=== PATIENT | female | born 1985 | race Caucasian/White ===

== ENCOUNTER → 2022-01-06 00:24 | Outpatient (CLI) | payer BC, SELFPAY ==
[2022-01-06 11:25] LABS: SARS-CoV-2 RNA PCR Negative
== END ==
PROVIDERS: Visit Provider Student in an Organized Health Care Education/Training Program
DX: Z01.812 Encounter for preprocedural laboratory examination (principal); Z20.822 Contact with and (suspected) exposure to COVID-19
CPT/HCPCS: C9803; U0003; U0005

== ENCOUNTER 2022-01-06 09:57 | Outpatient (CLI) | payer BC, SELFPAY ==
[2022-01-06 10:17] LABS: Hematocrit 42.5 % (37.0-47.0); Hemoglobin 13.9 g/dL (12.0-15.0); Mean Corpuscular HGB Conc 32.7 g/dl (32-36); Mean Corpuscular Hemoglobin 29.1 pg (26-34); Mean Corpuscular Volume 89.1 fl (80-100); Mean Platelet Volume 10.5 fl (7.4-10.4); Platelet Count Result 232 k/mm3 (150-375); Red Blood Count 4.77 M/mm3 (4.2-5.4); Red Cell Distribution Width 12.8 % (11.5-14.5); White Blood Count 9.4 K/mm3 (4.5-10.0)
== END 2022-01-06 09:58 | disposition home or self-care (01) ==
LOC: ANHSURGERY 10:01
PROVIDERS: Visit Provider Student in an Organized Health Care Education/Training Program
DX: N83.209 Unspecified ovarian cyst, unspecified side (principal); Z01.818 Encounter for other preprocedural examination
CPT/HCPCS: 36415; 85027; 86850; 86900; 86901

== ENCOUNTER 2022-01-09 00:32 | Day surgery (SDC) | payer BC, SELFPAY ==
[2022-01-03 15:50] VITALS: BMI 26.5
--- NOTE | 2022-01-03 15:51 | SUR.PREOP ---
Addendum entered by So Adams RN 01/06/22 09:21: DISCONTINUE MULTIVITAMINS AND PROBIOTIC 3 DAYS PRIOR TO SURGERY, HOLD UNTIL AFTER SURGERY. Original Note: Report to the Outpatient Waiting Room, entrance under the [facility] located off [facility], at time 12:00 on date 01/09/2022. OR Time. 2:00 PM - You and your visitor will be asked a series of questions to screen for COVID 19 for your protection. - A mask is required within the hospital. Preoperative COVID Testing Requirements:COVID TEST 01/06/22 @ 0945 No COVID Test needed if: (proof is required; if not received patient will have Rapid Test prior to entry) - Patient has received COVID Vaccine at least 14 days prior to procedure date or - Patient has positive COVID test result within last 90 days of surgery date. COVID Test needed if above criteria is not met If not COVID vaccinated a COVID test must be conducted within 72 hours of surgery and patient is asked to isolate self from time of testing until procedure. You will go to the [facility] Testing Site for your COVID testing. The [employer] [facility] Testing site is located at the corner of [address] [facility]. You will only be called if COVID results are positive and your surgeon may reschedule your elective surgery date. Patients may have clear liquids (water, carbonated beverages, clear teas, apple juice) until 3 hours prior to surgery with a maximum of 20 ounces. - No food from midnight until time of surgery - Infants may have breast milk until 4 hours before surgery, formula 6 hours prior to surgery. - Children will be allowed to drink immediately following surgery. If applicable, please bring a bottle or sippy cup to assist with drinking. Juice, water, soda, and popsicles are readily available. For infants on formula, please bring formula the day of surgery. Pacifiers are allowed. Take the following medications with a SIP of water the morning of surgery: N/A Medications to discontinue per physician N/A Date to take last dose N/A Please no make-up, nail serbian, hairspray, perfume, deodorant, or body powder the day of surgery. No jewelry (including any body piercings) or valuables the day of surgery, leave them at home. Please take a shower or bath the night before, or the morning of, surgery with an antibacterial soap. Wear comfortable, loose fitting clothing. Children are encouraged to wear pajamas. - Jewelry must be removed prior to entering the operating room. Rings and piercings that are not removed may be cut off. - The hospital will not accept responsibility for valuables. - Please leave all valuables, including medications, at home the day of surgery. If you are going home after surgery, a licensed passenger coach driver must drive you home. - NO public transportation without another adult. - We recommend that an adult stay with you for 24 hours following discharge. - We also recommend that you do not drive, make important decision, drink alcoholic beverages, or take any drugs that were not prescribed by your health care provider for at least 24 hours after your discharge time. For Pediatric surgeries, we recommend two adults accompany the child home (only one inside the building at this time). One visitor will be allowed to accompany the patient into the hospital. Patients visitor will be instructed to remain with patient at all times or leave the building. We will allow the visitor to come back to the postoperative area when patient is ready. Follow any additional instructions given to you from your surgeon. Telephone instructions given to ZOE PINEDA and asked if any additional questions and then verbalized understanding. Patient advised to call surgeon office or pre surgery nurse liaison [phone] if any additional questions.
[2022-01-09] VITALS (9 sets, daily range): BP systolic 112–154; BP diastolic 75–98; PULSE 67–85; RESP 12–18; TEMP 36.3–36.6; O2SAT 94–100
--- NOTE | 2022-01-09 10:17 | PM.IMHP ---
H&P: HPI History of Present Illness Date/Time: 01/09/22 10:17 Chief Complaint: pelvic pain infertility abnormal uterine bleeding right ovarian cyst Narrative: 36 yo who presents for diagnostic laparoscopy and right ovarian cystectomy. Pt initially presented with infertility and pelvic pain. Pelvic US showed a complex right ovarian cyst. Pt has been trying to conceive for some time without success. She has a history of endometriosis diagnosed in 2018 by laparoscopy. discussed endometriosis and that the cyst may be an endometria. Pt elects for surgical evaluation and management of cyst. Review of Systems Cardiovascular: Cardiovascular: Denies chest pain, Denies leg edema, Denies palpitations, Denies dyspnea and Denies dyspnea on exertion Respiratory: Respiratory: Denies cough, Denies dyspnea and Denies dyspnea on exertion Gastrointestinal: Gastrointestinal: Denies abdominal pain, Denies constipation, Denies diarrhea, Denies nausea and Denies vomiting Genitourinary: Genitourinary: Denies hematuria, Denies urinary frequency, Denies dysuria, Denies pelvic pain, Denies urinary incontinence and Denies vaginal discharge Neurologic: Reports system reviewed and no additional complaints, except as documented Psychiatric: Psychiatric: Reports no additional psychiatric complaints Endocrine: Endocrine: Denies palpitations PMFSH Social History Social History Smoking status: Never smoker Living arrangements: with family Spiritual care concerns: No Meds Home Medications and Allergies Home Medications Medication Instructions Recorded Confirmed Type Adults Multivitamin 1 cap PO DAILY 01/03/22 01/03/22 History Probiotic 1 cap PO DAILY 01/03/22 01/03/22 History Zyrtec 1 cap PO DAILY 01/03/22 01/03/22 History Allergies Allergy/AdvReac Type Severity Reaction Status Date / Time No Known Allergies Allergy Verified 01/03/22 15:54 Exam Const: General: no acute distress Eyes: EOM: EOMs intact bilaterally Neck: Neck: supple Thyroid: thyroid normal Chest: Breast/axilla inspection: normal inspection of the breasts Breast/axilla palpation: normal palpation of the breasts, normal palpation of the axillae and no axillary lymphadenopathy Resp: Effort & Inspection: normal respiratory effort Auscultation: clear to auscultation bilaterally Cardio: Rate: regular rate Rhythm: regular rhythm GI: Inspection: non-distended GI Palp: Yes Soft to palpation, No Tenderness to palpation present (GI) and No Guarding due to palpation present (GI) Auscultation: normal bowel sounds : General: No bladder normal to palpation External Female Exam: normal external appearance Speculum Exam - Vagina: normal vaginal discharge and No vaginal bleeding Speculum Exam - Cervix: nontender Bimanual exam- vagina & uterus: No bladder normal to palpation and No Cervical tenderness present OB/external & speculum: No vaginal bleeding Skin: General skin exam: normal color and no rashes or lesions noted Neuro: Cognition (Neuro): normal cognition Speech: normal speech Extrem: General: normal to inspection and no edema Psych: Mental Status: mental status grossly normal Affect: normal affect Assessment and Plan Assessment and plan (1) Pelvic pain: Code(s): R10.2 - Pelvic and perineal pain Status: Acute Assessment and Plan: pt diagnosed with endometriosis in 2018 by laparoscopy pt still having pelvic pain (2) Ovarian cyst: Code(s): N83.209 - Unspecified ovarian cyst, unspecified side Status: Acute (3) Dysmenorrhea: Code(s): N94.6 - Dysmenorrhea, unspecified Status: Acute Assessment and Plan: complex right ovarian cyst (4) Endometriosis: Code(s): N80.9 - Endometriosis, unspecified Status: Acute Assessment and Plan: diagnosed with endometriosis in 2018 by laparoscopy pt has been struggling to conceive pt with heavy painful periods pt noted to have complex right ov
--- NOTE | 2022-01-09 10:23 | WPDHPUPDATE1 ---
History and Physical Update Update Date/Time: 01/09/22 10:23 History and Physical has been reviewed, including an updated exam of the patient. There are NO changes in the patient's condition. Risks, benefits, and alternatives have been discussed and questions answered. Patient agrees to proceed with procedure.
[2022-01-09] MEDS: ACETAMINOPHEN 500 MG TABLET 1000 MG PO (12:17)
[2022-01-09] MEDS: LACTATED RINGERS 1,000 ML 30 ML IV CONT ×2 (12:30→15:45)
[2022-01-09] MEDS: KETOROLAC 15 MG/ML VIAL (*BKC) IV PUSH (12:44)
--- NOTE | 2022-01-09 12:55 | P.PNAN_ITS ---
Anes - Initial Pre Proc Eval Procedure: Operation Date: 01/09/22 14:00 Proposed Procedures p Laparoscopic Right Ovarian Cystectomy - Bobby Velazco MD Date/Time: 01/09/22 12:55 Surgeon: Bobby Velazco MD Pre Op Diagnosis: pain right ovarian cyst Patient Data Age: 36 Gender: F Height: 1.57 m Weight: 68.3 kg Allergies Allergy/AdvReac Type Severity Reaction Status Date / Time No Known Allergies Allergy Verified 01/09/22 12:08 Home Medications Medication Instructions Recorded Confirmed Type Adults Multivitamin 1 cap PO DAILY 01/03/22 01/09/22 History Probiotic 1 cap PO DAILY 01/03/22 01/09/22 History Zyrtec 1 cap PO DAILY 01/03/22 01/09/22 History Patient hx anesthesia problems: none Family hx anesthesia problems: none Results Review: All pre-operative results and documents have been reviewed as part of the pre-operative evaluation. [facility] Past Medical History Medical History (Updated 01/09/22 @ 12:59 by John Goncalves DO) Endometriosis Social History Social History Smoking status: Never smoker Living arrangements: with family Spiritual care concerns: No Anes - Eval Final PreProcedure Day of Procedure 01/09/22 12:55 Patient weight: overweight Heart: regular rate and rhythm Lungs: clear to auscultation and normal air movement Airway: Mallampati scale class II Neurological: alert and oriented Last oral intake: >/= 8 hours ASA classification: II Emergent: no Anesthetic plan: proceed Anesthesia type and monitoring: general ETT and standard monitoring Results Review: All pre-operative results and documents have been reviewed as part of the pre-operative evaluation. Informed Consent: The patient's anesthetic plan and its attendant risks and benefits were discussed with the patient/family/POA. Questions were solicited and answers provided to the satisfaction of the patient/family/POA.
--- NOTE | 2022-01-09 14:09 | SUR.PREOP ---
Resting with no needs or complaints. Discussed delay with patient and . Voices understanding.
[2022-01-09] MEDS: LIDO 1%/EPINEPHRINE 1:100,000 50 ML VIAL 20 ML INFILTRATE (14:49)
--- NOTE | 2022-01-09 15:38 | P.OP_ITS ---
Procedure Note - Detailed Date of Procedure 01/09/22 Pre-op Diagnosis pelvic pain dysmenorrhea endometriosis right ovarian cyst Post-op Diagnosis Same Procedure Performed exploratory laparoscopy fulguration of endometriosis Surgeon Bobby Velazco MD Anesthesia General Indications pelvic pain Findings severe stage 4 endometriosis. Endometrial implants noted throughout the pelvis. Focal areas of lesions on the left uterosacral ligament along the course of the ovarian artery. Peritoneal implants in the posterior cul de sac, filmy adhesions between the bowel and posterior uterine serosa, decidual reaction all over the uterine serosa. Right ovary with no obvious cyst. The ovarian capsule was puncutred during manipulation and dark chocolate like blood was expressed. Description of Procedure The patient was taken to the operating room where general endotracheal anesthesia was undertaken and found to be adequate. She was then prepped and draped in the dorsal lithotomy position and placed in adjustable stirrups. A pre-operative team brief and a time out were completed. A catheter was placed to drain the bladder. Retractors were placed placed in the vagina and the cervix was identified. An acorn uterine manipulator was placed. Attention was then turned to the abdomen which was anesthetized umbilically with injected anesthestic. A 5 mm skin incision was made in the umbilicus. A 5 mm optical trocar was then placed with direct camera visualization of the abdominal layers during placement. The trocar stylet was removed and the camera was used to verify intra-abdominal placement. CO2 insufflation was then connected and resumed. The pelvis was inspected. A left lower quadrant 5 mm port was placed, in addition to a right lower quadrant 5 port in the standard fashion after using local anesthetic. The pelvis was inspected. severe stage 4 endometriosis was noted throughout the pelvis. There were dense collections of gun powder lesions along the left uterosacral ligament, the anterior pelvic wall, Right ovarian fossa, and posterior cul de sac. Multiple peritoneal biopsies were taken. Visible areas of gun powder lesions were fulgurated with monopolar energy. During manipulation of the right ovary, the ovarian capsule was puncutured. Dark chocolate like blood was expressed. This are was attempted to be opened further to remove the cyst wall. Cyst wall was unable to be identified due to bleeding. After further manipulation, brisk bleeding was noted from the Right ovarian capsule. Monopolar energy was used for cautery. After bleeding was controlled, the pelvis was copiously irrigated. Hemaderm was placed overy the ovarian incision. The pelvis was again inspected and there was no pooling of blood or further bleeding noted At this time it was felt that no further lesions could be removed safely without risk of bleeding given proximity to significant vessels and structures. The surgical field was thoroughly irrigated using normal saline. All surgical beds were noted to be hemostatic. Sponge, lap and needle counts were correct. All skin incisions were closed with 4-0 Vicryl suture subcuticularly. The uterine manipulator was removed from the uterus. Hemostasis of the cervix wa s noted. The urinary catheter was removed. The patient was taken out of dorsal lithotomy position. Anesthesia was reversed. The patient was taken to the PACU. Estimated Blood Loss 200 Urine Output 100 Drains No Packing No Pathology Yes (peritoneal biopsies) Complications No immediate complications Condition Stable Disposition PACU
[2022-01-09] MEDS: fentaNYL CITRATE INJ (*CRX) 100 MCG/2 ML VIAL 25 MCG IV PUSH ×4 (16:00→16:19)
[2022-01-09] MEDS: oxyCODONE HCL (*CRX) 5 MG TAB IR PO (17:07)
--- NOTE | 2022-01-09 17:29 | SUR.PHASEII ---
DR. KEYS AWARE OF ELEVATED BP'S; OKAY'D FOR PATIENT TO GO HOME.
== END 2022-01-09 17:43 | disposition home or self-care (01) ==
PROVIDERS: Visit Provider Student in an Organized Health Care Education/Training Program
PROC: (CPT 49320; principal; 2022-01-09 14:00)
DX: R10.2 Pelvic and perineal pain (principal); N94.6 Dysmenorrhea, unspecified; N80.3 Endometriosis of pelvic peritoneum; N73.6 Female pelvic peritoneal adhesions (postinfective); N83.201 Unspecified ovarian cyst, right side
CPT/HCPCS: 58662; 88305; A9270; J1100; J1885; J2250; J2405; J2704; J2710; J3010; J7030; J7120

== ENCOUNTER 2023-01-09 11:12 | Outpatient (RCR) | payer BC, SELFPAY ==
[2023-01-09 11:47] LABS: Basophils Absolute Auto 0.1 K/mm3 (0.0-0.1); Basophils Percent Auto 0.7 % (0.2-1.2); Eosinophils Absolute Auto 0.2 K/mm3 (0-0.3); Eosinophils Percent Auto 1.4 % (0-4.4); Hemoglobin 13.7 g/dL (12.0-15.0); Immature Granulocyte Absolute 0.04 K/mm3 (0.00-0.031); Immature Granulocyte Percent A 0.4 % (0-0.5); Lymphocytes Absolute Auto 2.18 K/mm3 (0.9-3.2); Lymphocytes Percent Auto 20.4 % (18.3-44.2); Mean Corpuscular HGB Conc 33.4 g/dl (32-36); Mean Corpuscular Hemoglobin 28.5 pg (26-34); Mean Corpuscular Volume 85.4 fl (80-100); Mean Platelet Volume 10.7 fl (7.4-10.4); Monocytes Absolute Auto 0.6 K/mm3 (0.1-0.6); Monocytes Percent Auto 5.8 % (2.6-8.5); Neutrophils Absolute Auto 7.6 K/mm3 (1.3-6.7); Neutrophils Percent Auto 71.3 % (45.5-73.1); Platelet Count Result 221 k/mm3 (150-375); Red Cell Distribution Width 12.7 % (11.5-14.5); White Blood Count 10.7 K/mm3 (4.5-10.0)
[2023-01-09 12:40] LABS: HIV 1/2 Ab P24 Ag Result Negative (Negative)
[2023-01-09 12:41] LABS: Hepatitis B Surface Antigen Negative (Negative); Rubella IgG Antibody 14.9 IU/ML
[2023-01-09 17:16] LABS: Rapid Plasma Reagin Non-Reactive (NonReactive)
== END 2023-04-09 23:59 | disposition home or self-care (01) ==
LOC: ANHLAB 11:12
PROVIDERS: PCP Family Medicine; Visit Provider Student in an Organized Health Care Education/Training Program
DX: Z11.4 Encounter for screening for human immunodeficiency virus [HIV] (principal); N94.89 Other specified conditions associated with female genital organs and menstrual cycle
CPT/HCPCS: 36415; 84702; 85025; 86592; 86644; 86703; 86747; 86762; 86787; 86850; 86900; 86901; 87086; 87340; G0432

== ENCOUNTER 2023-05-14 11:29 | Outpatient (CLI) | payer BC, SELFPAY ==
[2023-05-14 13:53] LABS: Basophils Absolute Auto 0.1 K/mm3 (0.0-0.1); Basophils Percent Auto 0.4 % (0.2-1.2); Eosinophils Absolute Auto 0.1 K/mm3 (0-0.3); Eosinophils Percent Auto 0.6 % (0-4.4); Hematocrit 37.6 % (37.0-47.0); Hemoglobin 12.3 g/dL (12.0-15.0); Immature Granulocyte Percent A 0.8 % (0-0.5); Lymphocytes Absolute Auto 1.82 K/mm3 (0.9-3.2); Lymphocytes Percent Auto 14.8 % (18.3-44.2); Mean Corpuscular HGB Conc 32.7 g/dl (32-36); Mean Corpuscular Hemoglobin 29.6 pg (26-34); Mean Corpuscular Volume 90.6 fl (80-100); Mean Platelet Volume 10.9 fl (7.4-10.4); Monocytes Absolute Auto 0.8 K/mm3 (0.1-0.6); Monocytes Percent Auto 6.7 % (2.6-8.5); Neutrophils Absolute Auto 9.4 K/mm3 (1.3-6.7); Neutrophils Percent Auto 76.7 % (45.5-73.1); Platelet Count Result 194 k/mm3 (150-375); Red Blood Count 4.15 M/mm3 (4.2-5.4); Red Cell Distribution Width 14.5 % (11.5-14.5); White Blood Count 12.3 K/mm3 (4.5-10.0)
[2023-05-14 14:02] LABS: Glucose 1 Hour PP 50gm Dose 110 mg/dL
[2023-05-14 14:48] LABS: HIV 1/2 Ab P24 Ag Result Negative (Negative)
== END 2023-05-14 11:30 | disposition home or self-care (01) ==
LOC: ANHLAB 11:32
PROVIDERS: PCP Family Medicine; Visit Provider Student in an Organized Health Care Education/Training Program
DX: Z34.90 Encounter for supervision of normal pregnancy, unspecified, unspecified trimester (principal); Z3A.00 Weeks of gestation of pregnancy not specified
CPT/HCPCS: 36415; 82947; 85025; 86703; G0432

== ENCOUNTER 2023-07-29 07:27 | Inpatient (IN) | payer BC, MEDICAID, SELFPAY ==
[2023-07-29] VITALS (95 sets, daily range): BP systolic 104–132; BP diastolic 68–94; PULSE 77–121; RESP 18; TEMP 36.1–37.2; O2SAT 95–100; BMI 36.3
--- NOTE | 2023-07-29 07:56 | P.HPUP_ITS ---
History and Physical Update Update Date/Time: 07/29/23 07:56 38-year-old who presents at 39 weeks 3 days for elective induction of labor. This is an IVF . Patient has been on low-dose aspirin throughout the . Patient has a history of stage IV endometriosis. Rem ainder of the has been uncomplicated. History and Physical has been reviewed, including an updated exam of the patient. There are NO changes in the patient's condition. Risks, benefits, and alternatives have been discussed and questions answered. Patient agrees to proceed with procedure. A/P: admit to L&D routine admission orders labs reviewed Rh+ GBS neg continuous EFM plan for misoprostol IOL
--- NOTE | 2023-07-29 08:03 | LDADM ---
This patient, Stephy Resendiz, was admitted to Labor/Delivery/Recovery 102 on 07/29/23 at 07:27. Plans for labor, pain management and were discussed with patient. Patient/family oriented to hospital policies and general routines including ID bracelet, bed and alarms, visiting hours, pain management, procedures, bathroom and other care routines, personal items, smoking policy, room service/diet and guest tray routines, infant security routines, and visiting hours. Patient/Family are encouraged to report perceived risks to care and to ask questions if they do not understand what they are told or what they should do. See [facility] for further documentation.
[2023-07-29 08:20] LABS: Basophils Percent Auto 0.3 % (0.2-1.2); Eosinophils Absolute Auto 0.1 K/mm3 (0-0.3); Eosinophils Percent Auto 0.9 % (0-4.4); Hematocrit 39.5 % (37.0-47.0); Hemoglobin 13.1 g/dL (12.0-15.0); Immature Granulocyte Absolute 0.06 K/mm3 (0.00-0.031); Immature Granulocyte Percent A 0.5 % (0-0.5); Lymphocytes Absolute Auto 2.49 K/mm3 (0.9-3.2); Lymphocytes Percent Auto 21.4 % (18.3-44.2); Mean Corpuscular HGB Conc 33.2 g/dl (32-36); Mean Corpuscular Hemoglobin 29.4 pg (26-34); Mean Corpuscular Volume 88.6 fl (80-100); Mean Platelet Volume 11.1 fl (7.4-10.4); Monocytes Absolute Auto 1.1 K/mm3 (0.1-0.6); Monocytes Percent Auto 9.4 % (2.6-8.5); Neutrophils Absolute Auto 7.8 K/mm3 (1.3-6.7); Neutrophils Percent Auto 67.5 % (45.5-73.1); Platelet Count Result 195 k/mm3 (150-375); Red Blood Count 4.46 M/mm3 (4.2-5.4); Red Cell Distribution Width 13.7 % (11.5-14.5); White Blood Count 11.6 K/mm3 (4.5-10.0)
[2023-07-29] MEDS: miSOPROStol 25 MCG TABLET PO ×2 (08:21→12:42)
[2023-07-29 11:03] LABS: Rapid Plasma Reagin Non-Reactive (NonReactive)
[2023-07-29] MEDS: ACETAMINOPHEN 500 MG TABLET 1000 MG PO (13:25)
[2023-07-29] MEDS: fentaNYL CITRATE INJ (*CRX) 100 MCG/2 ML VIAL 50 MCG IV PUSH ×3 (17:48→22:51)
[2023-07-29] MEDS: ONDANSETRON INJ 4 MG/2 ML VIAL IV PUSH (17:49)
[2023-07-29] MEDS: LACTATED RINGERS 1,000 ML 125 ML IV CONT (22:49)
[2023-07-29] MEDS: OXYTOCIN 30 UNITS/NS 500 ML 30 UNITS/500 ML BAG 6 UNITS IV CONT (22:50)
[2023-07-30] VITALS (253 sets, daily range): BP systolic 59–132; BP diastolic 28–101; PULSE 71–134; TEMP 36.2–37.3; O2SAT 94–100
[2023-07-30] MEDS: fentaNYL CITRATE INJ (*CRX) 100 MCG/2 ML VIAL 50 MCG IV PUSH (03:09)
[2023-07-30] MEDS: LACTATED RINGERS 500 ML 999 ML IV CONT (05:25)
--- NOTE | 2023-07-30 05:36 | WPDANESEPPF ---
Anes - Initial Pre Proc Eval Procedure: Labor epidural Date/Time: 07/30/23 05:36 Surgeon: Bobby Velazco MD Pre Op Diagnosis: Labor pain Pre Op Diagnosis: IOL Patient Data Age: 38 Gender: F Height: 1.57 m Weight: 90 kg Last Vital Signs Temp 36.2 C L 07/30/23 02:00 Pulse 90 07/30/23 05:00 Resp 18 07/29/23 20:39 BP 123/79 07/30/23 05:00 Pulse Ox 100 07/29/23 22:31 O2 Del Method Room Air 07/29/23 07:59 Allergies Allergy/AdvReac Type Severity Reaction Status Date / Time No Known Allergies Allergy Verified 07/27/23 14:10 Home Medications Medication Instructions Recorded Confirmed Type Zyrtec 1 cap PO BID 01/03/22 07/06/23 History aspirin 81 mg tablet,delayed 81 mg PO DAILY 02/04/23 07/06/23 History release famotidine 20 mg tablet (Pepcid) 20 mg PO DAILY 02/04/23 07/06/23 History ferrous sulfate 325 mg (65 mg 325 mg PO DAILY 07/06/23 07/06/23 History iron) tablet ondansetron HCl 4 mg tablet 4 mg PO Q6H PRN nausea and 07/20/23 07/29/23 Rx vomiting #30 tabs prenat.vits,sesar,wai-cdtj-lsjep 1 tablet PO DAILY 07/29/23 07/29/23 History Laboratory Tests 07/29/23 08:11 WBC 11.6 H K/mm3 (4.5-10.0) RBC 4.46 M/mm3 (4.2-5.4) Hgb 13.1 g/dL (12.0-15.0) Hct 39.5 % (37.0-47.0) MCV 88.6 fl (80-100) MCH 29.4 pg (26-34) MCHC 33.2 g/dl (32-36) RDW 13.7 % (11.5-14.5) Plt Count 195 k/mm3 (150-375) MPV 11.1 H fl (7.4-10.4) Immature Gran % (Auto) 0.5 % (0-0.5) Neut % (Auto) 67.5 % (45.5-73.1) Lymph % (Auto) 21.4 % (18.3-44.2) [place] % (Auto) 9.4 H % (2.6-8.5) Eos % (Auto) 0.9 % (0-4.4) Baso % (Auto) 0.3 % (0.2-1.2) Lymph # (Auto) 2.49 K/mm3 (0.9-3.2) [place] # (Auto) 1.1 H K/mm3 (0.1-0.6) Eos # (Auto) 0.1 K/mm3 (0-0.3) Baso # (Auto) 0.0 K/mm3 (0.0-0.1) Abs Immat Gran (auto) 0.06 H K/mm3 (0.00-0.031) Absolute Neuts (auto) 7.8 H K/mm3 (1.3-6.7) Absolute Nucleated RBC 0.0 K/mm3 (0.0-0.012) Nucleated RBC % 0.0 % (0.0-0.2) RPR Non-reactive (NonReactive) Blood Type A Positive Antibody Screen Negative Patient hx anesthesia problems: none Family hx anesthesia problems: none Results Review: All pre-operative results and documents have been reviewed as part of the pre-operative evaluation. [facility] Past Medical History Medical History Endometriosis Suppression of menses Surgical History Surgical History H/O laparoscopy Family History Family History Mother Diabetes mellitus Pancreatitis Hypertension Grandparent Breast cancer Grandparent Cirrhosis of liver Dementia Social History Social History Smoking status: Never smoker Alcohol intake: former Substance use: never Substance use type: does not use Lack of Transportation: No Lack of Food: Never True Current Housing: I Have Housing Concerned About Future Housing: No Difficulty Paying Gas/Electric Bills: No Difficulty Paying for Meds: No Currently Unemployed: No Education: High School Diploma/GED Difficulty w/ Childcare or Family Care: No Living arrangements: other Additional living arrangements comments: Occupation/Education: occupation 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
--- NOTE | 2023-07-30 06:00 | WPDANESEPN ---
Anes - Epidural Procedure Note Date/Time: 07/30/23 06:00 Consent: I have discussed with the patient/family/POA, the placement of an epidural catheter and the use of epidural narcotic/local anesthetic for labor analgesia and/or postoperative pain management, including associated potential risks, benefits, complications and side effects. I have discussed alternative methods of labor analgesia and/or postoperative pain management. The patient/family/POA, understand(s) and wish(es) to proceed with epidural narcotic/local anesthetic for labor analgesia and/or postoperative pain management. Time-Out: A pre-procedural Time-Out was completed immediately before starting the procedure and confirmed: Patient Identification, Site, Procedure, Patient Position and the Availability of Requisite Equipment. Clinical Indications: Labor pain Epidural Insertion Note Patient position: sitting Skin prep: chlorhexidine and sterile drape Needle: 18g Tuohy-Schliff Catheter: 20g Unstyleted Technique: Loss of resistance. Level of insertion: L3/4 Catheter skin nenita (cm): 9 Length in epidural space (cm): 4 Skin anesthesia: lidocaine 1% Test dose: 1.5% Lidocaine with 1:[id number] Epi, negative for subarachnoid Inj and negative for intravascular Inj Time of test dose: 05:50 Observations: tolerated well Complications: none
[2023-07-30] MEDS: PHENYLEPHRINE 1,000 MCG/10 ML SYRINGE 100 MCG IV PUSH ×2 (06:05→06:06)
[2023-07-30] MEDS: ONDANSETRON INJ 4 MG/2 ML VIAL IV PUSH (06:38)
[2023-07-30] MEDS: LACTATED RINGERS 1,000 ML 125 ML IV CONT ×4 (07:35→23:53)
[2023-07-30] MEDS: CALCIUM CARBONATE (TUMS) 500 MG (200 MG ELEMENTAL) PO ×2 (08:52→21:37)
[2023-07-30] MEDS: OXYTOCIN 30 UNITS/NS 500 ML 30 UNITS/500 ML BAG 20 UNITS IV CONT (20:24)
[2023-07-30] MEDS: AZITHROMYCIN 500 MG/NS 250 ML 500 MG/250 ML BAG 250 MG IVPB (23:53)
[2023-07-30] MEDS: ceFAZolin 2 GM/D5W 50 ML 2 GM/50 ML BAG IVPB (23:54)
[2023-07-31] VITALS (43 sets, daily range): BP systolic 99–138; BP diastolic 59–88; PULSE 73–128; RESP 16–18; TEMP 36.3–36.6; O2SAT 95–100
--- NOTE | 2023-07-31 00:18 | PM.IMHP ---
H&P: HPI History of Present Illness Date/Time: 07/31/23 00:18 Chief Complaint: Intrauterine at term Narrative: 30-year-old 010 who presents at 39 weeks 3 days for elective induction of labor. This is an IVF .? Patient has been on low-dose aspirin throughout the .? Patient has a history of stage IV endometriosis.? Remainder of the has been uncomplicated. Review of Systems Cardiovascular: Cardiovascular: Denies chest pain, Denies leg edema, Denies palpitations, Denies dyspnea and Denies dyspnea on exertion Respiratory: Respiratory: Denies cough, Denies dyspnea and Denies dyspnea on exertion Gastrointestinal: Gastrointestinal: Denies abdominal pain, Denies constipation, Denies diarrhea, Denies nausea and Denies vomiting Genitourinary: Genitourinary: Denies hematuria, Denies urinary frequency, Denies dysuria, Denies pelvic pain, Denies urinary incontinence and Denies vaginal discharge Neurologic: Reports system reviewed and no additional complaints, except as documented Psychiatric: Psychiatric: Reports no additional psychiatric complaints Endocrine: Endocrine: Denies palpitations PMFSH Past Medical History Medical History Endometriosis Suppression of menses Surgical History Surgical History H/O laparoscopy Family History Family History Mother Diabetes mellitus Pancreatitis Hypertension Grandparent Breast cancer Grandparent Cirrhosis of liver Dementia Social History Social History Smoking status: Never smoker Alcohol intake: former Substance use: never Substance use type: does not use Lack of Transportation: No Lack of Food: Never True Current Housing: I Have Housing Concerned About Future Housing: No Difficulty Paying Gas/Electric Bills: No Difficulty Paying for Meds: No Currently Unemployed: No Education: High School Diploma/GED Difficulty w/ Childcare or Family Care: No Living arrangements: other Additional living arrangements comments: Occupation/Education: occupation 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 Gender identity (if verbalized by the patient): Female Sexual Orientation (if Verbalized by the Patient): Straight or Heterosexual Spiritual care concerns: No Meds Home Medications and Allergies Home Medications Medication Instructions Recorded Confirmed Type Zyrtec 1 cap PO BID 01/03/22 07/06/23 History aspirin 81 mg tablet,delayed 81 mg PO DAILY 02/04/23 07/06/23 History release famotidine 20 mg tablet (Pepcid) 20 mg PO DAILY 02/04/23 07/06/23 History ferrous sulfate 325 mg (65 mg 325 mg PO DAILY 07/06/23 07/06/23 History iron) tablet ondansetron HCl 4 mg tablet 4 mg PO Q6H PRN nausea and 07/20/23 07/29/23 Rx vomiting #30 tabs prenat.vits,sesar,tot-jniz-oisnx 1 tablet PO DAILY 07/29/23 07/29/23 History Allergies Allergy/AdvReac Type Severity Reaction Status Date / Time No Known Allergies Allergy Verified 07/27/23 14:10 Vital Signs Vital Signs - 24 hr 07/30/23 01:00 07/30/23 02:00 07/30/23 03:00 Temperature 97.2 F L Pulse Rate 89 95 86 Blood Pressure 132/81 121/80 127/84 Pulse Oximetry 07/30/23 03:30 07/30/23 04:00 07/30/23 04:30 Temperature Pulse Rate 88 91 86 Blood Pressure 119/84 126/93 H 127/79 Pulse Oximetry 07/30/23 05:00 07/30/23 05:44 07/30/23 05:45 Temperature Pulse Rate 90 127 H Blood Pressure 123/79 111/80 Pulse Oximetry 97 07/30/23 05:48 07/30/23 05:50 07/30/23 05:55 Temperature Pulse Rate 122 H 115 H 120 H Blood Pressure 124/101 H 117/78 128/66 Pulse Oximetry 97 99 07/30/23 05:56 07/30/23 05:58 07/30/23 06:00 Temperature 98 F Pulse Rate 12
--- NOTE | 2023-07-31 00:22 | WPDHPUPDATE1 ---
History and Physical Update Update Date/Time: 07/31/23 00:22 History and Physical has been reviewed, including an updated exam of the patient. There are NO changes in the patient's condition. Risks, benefits, and alternatives have been discussed and questions answered. Patient agrees to proceed with procedure.
[2023-07-31] MEDS: KETOROLAC 30 MG/ML VIAL (*BKC) IV PUSH ×2 (01:05→08:11)
--- NOTE | 2023-07-31 01:18 | W.PM.OBCSD ---
OB - Delivery Note Procedure Delivery date: 07/31/23 Pre-op diagnosis: Arrest of Decent and Arrest of Dilation Post-op Diagnosis: Same Induction method: Per Misoprostol Protocol Delivery augmentation: Rupture of Membranes and Pitocin Delivery monitor: External FHT and Internal Uterine Prior to decision for section, ACOG/SM labor guidelines were considered and discussed with the patient and staff. Decision made to proceed with the section.: Yes Procedure Performed: Primary Primary branch: low cervical, transverse Surgeon: Bobby Velazco MD Anesthesia type: Epidural Description of Procedure/Findings: The patient was taken to the operating room. Pt had previously had an epidural and anesthesia was found to be adequate at a t-10 level. The patient was placed in a supine position with a slight left lateral tilt. A bill catheter was placed with return of clear urine. A Bovie grounding pad was placed. Surgical prep was performed and surgical drapes were placed. A surgical time out was performed. A Pfannenstiel skin incision was then made with the scalpel and carried through to the underlying layer of fascia. The fascia was then incised in the midline and the incision was extended laterally with the Parra scissors. The superior aspect of the fascia was then grasped with the Chhaya clamps, elevated, and the underlying rectus muscles dissected off bluntly and sharply. Attention was then turned to the inferior aspect of this incision which, in a similar fashion, was grasped, tented up with the Chhaya clamps, and the rectus muscles dissected off both bluntly and sharply. The rectus muscles were then in the midline. The peritoneum was identified and entered bluntly. The peritoneal incision was then extended superiorly and inferiorly with good visualization of the bladder. A Mobius retractor was placed for better visualization. The vesico-uterine serosa was identified and dissected to create a bladder flap. The bladder blade was reinserted. The uterus was inspected for rotation. A low-transverse uterine incision was made sharply with the scalpel and entry was made into the uterine cavity. An amniotomy was made and copious amounts of clear fluid were noted on return. The uterine incision was extended laterally bluntly. The bladder blade was removed and the fetus was delivered atraumatically. The nose and mouth were suctioned with a bulb syringe. The umbilical cord was clamped twice and cut. The infant was handed off to the waiting staff. At the time of the delivery, the had good color, tone and grimace. The cried with minimal stimulation. A second segment of umbilical cord was clamped and cut for cord blood gasses. Cord blood was collected for determination of the blood type and for direct Schmidt. The placenta was delivered spontaneously without difficulty. The placenta appeared grossly normal and complete. The uterus was exteriorized and cleared of all clots and debris. The uterine incision was repaired using 0-monocryl suture in a running fashion. A second layer of 0 Monocryl suture was used in an imbricating fashion to obtain excellent hemostasis and uterine strength. The uterine closure was inspected for hemostasis. The posterior aspect of the uterus and the broad ligaments were inspected and the posterior cul-de-sac cleared of fluid and blood clots. Some areas of bleeding along the hysterotomy were made hemostatic with a series of figure of 8 sutures of 0-monocryl. The uterine closure was again inspected and found to be hemostatic. The uterus was returned to the abdominal cavity. The pericolic gutters were inspected and were cleared of all blood clots and debris. The Mobius retractor was removed from the abdomen. The uterine closure was then re inspected to ensure hemostasis as were all subfascial tissues. Hemaderm was placed along the hysterotomy. The peritoneum was closed using 3-0 vicryl in a runn
[2023-07-31] MEDS: PSEUDOEPHEDRINE HCL 30 MG TABLET PO (02:06)
[2023-07-31] MEDS: MORPHINE SULFATE INJ (*CRX) 10 MG/ML AMP 2 MG IV PUSH (02:22)
[2023-07-31] MEDS: OXYTOCIN 30 UNITS/NS 500 ML 30 UNITS/500 ML BAG 125 UNITS IV CONT (03:37)
[2023-07-31] MEDS: LORATADINE 10 MG TABLET PO (08:12)
[2023-07-31] MEDS: HYDROcodone/acetaminophen (*CRX) 5-325 MG TABLET 1 TAB PO ×2 (11:12→15:02)
[2023-07-31] MEDS: DOCUSATE SODIUM 100 MG CAPSULE PO ×2 (11:59→15:04)
[2023-07-31] MEDS: IBUPROFEN 600 MG TABLET PO ×2 (15:03→20:56)
[2023-08-01] MEDS: HYDROcodone/acetaminophen (*CRX) 10-325 MG TABLET 1 TAB PO ×4 (03:47→15:26)
[2023-08-01] MEDS: IBUPROFEN 600 MG TABLET PO ×3 (03:47→19:21)
[2023-08-01 04:00] VITALS: BP 103/69; PULSE 88; RESP 16; TEMP 36.3; O2SAT 100
[2023-08-01 05:29] LABS: Basophils Absolute Auto 0.1 K/mm3 (0.0-0.1); Basophils Percent Auto 0.3 % (0.2-1.2); Eosinophils Absolute Auto 0.2 K/mm3 (0-0.3); Eosinophils Percent Auto 1.4 % (0-4.4); Hemoglobin 10.2 g/dL (12.0-15.0); Immature Granulocyte Absolute 0.08 K/mm3 (0.00-0.031); Immature Granulocyte Percent A 0.6 % (0-0.5); Lymphocytes Absolute Auto 2.47 K/mm3 (0.9-3.2); Lymphocytes Percent Auto 17.1 % (18.3-44.2); Mean Corpuscular HGB Conc 31.9 g/dl (32-36); Mean Corpuscular Hemoglobin 28.9 pg (26-34); Mean Corpuscular Volume 90.7 fl (80-100); Mean Platelet Volume 11.6 fl (7.4-10.4); Monocytes Absolute Auto 1.3 K/mm3 (0.1-0.6); Neutrophils Absolute Auto 10.3 K/mm3 (1.3-6.7); Neutrophils Percent Auto 71.6 % (45.5-73.1); Platelet Count Result 172 k/mm3 (150-375); Red Blood Count 3.53 M/mm3 (4.2-5.4); Red Cell Distribution Width 13.9 % (11.5-14.5); White Blood Count 14.4 K/mm3 (4.5-10.0)
--- NOTE | 2023-08-01 07:45 | PM.OBPNVD ---
OB - PN: Subj Subjective Date/time seen: 08/01/23 07:45 Pain well controlled. Diet/amb without issue. VSS afebrile abd soft/stevie tender inc bandage dry labs noted likely home am OB - PN: Obj Data Labs 08/01/23 04:49 Labs: Laboratory Results - last 24 hr 08/01/23 04:49 WBC 14.4 H RBC 3.53 L Hgb 10.2 L Hct 32.0 L MCV 90.7 MCH 28.9 MCHC 31.9 L RDW 13.9 Plt Count 172 MPV 11.6 H Immature Gran % (Auto) 0.6 H Neut % (Auto) 71.6 Lymph % (Auto) 17.1 L [place] % (Auto) 9.0 H Eos % (Auto) 1.4 Baso % (Auto) 0.3 Lymph # (Auto) 2.47 [place] # (Auto) 1.3 H Eos # (Auto) 0.2 Baso # (Auto) 0.1 Abs Immat Gran (auto) 0.08 H Absolute Neuts (auto) 10.3 H Absolute Nucleated RBC 0.0 Nucleated RBC % 0.0 OB - PN A/P Time Spent With Patient Time: Total time spent is greater than 50% in coordination of care (as documented) at patient's floor/unit and/or counseling patient:
[2023-08-01] MEDS: DOCUSATE SODIUM 100 MG CAPSULE PO ×2 (08:14→17:25)
[2023-08-01] MEDS: FAMOTIDINE 20 MG TABLET PO (08:14)
[2023-08-01] MEDS: MULTIVIT/MIN/PREN/FOL AC/IRON TABLET 1 TAB PO (08:14)
[2023-08-01] MEDS: LORATADINE 10 MG TABLET PO (08:15)
[2023-08-01 09:05] VITALS: BP 105/71; PULSE 84; RESP 16; TEMP 36.4; O2SAT 98
--- NOTE | 2023-08-01 09:56 | WPDANLDPN2 ---
Anes-Prog Note L&D Date/Time: 08/01/23 09:56 Comfortable throughout: labor and section Neuraxial method: epidural Epidural/Spinal procedure site: tender Neuro status: Neuro function grossly intact. Cardiovascular status: normal Respiratory status: normal Airway patency: baseline Mental status: baseline Post-Op hydration status: normal Vital Signs: Last Vital Signs Temp 97.3 F L 08/01/23 04:00 Pulse 88 08/01/23 04:00 Resp 16 08/01/23 04:00 BP 103/69 08/01/23 04:00 Pulse Ox 100 08/01/23 04:00 O2 Del Method Room Air 08/01/23 04:00 Pain score (VAS): 3 Post-procedural complaints: pruritis severe, treatment refractory Patient feedback: Patient satisfied with anesthetic care.
--- NOTE | 2023-08-01 09:57 | WPDANLDNPN2 ---
Anes-Prog Note L&D-Neuraxial Date/Time: 08/01/23 09:57 Neuraxial medications: epidural PF morphine Opiod-related complaints: pruritis severe, treatment refractory Patient feedback: Patient satisfied with post-operative pain management.
[2023-08-01] MEDS: SIMETHICONE 80 MG TAB.CHEW PO (19:21)
[2023-08-01] MEDS: HYDROcodone/acetaminophen (*CRX) 5-325 MG TABLET 1 TAB PO ×2 (19:26→23:01)
[2023-08-01 19:30] VITALS: BP 131/87; PULSE 88; RESP 16; TEMP 36.1; O2SAT 100
[2023-08-02] MEDS: IBUPROFEN 600 MG TABLET PO ×3 (01:23→20:04)
[2023-08-02] MEDS: HYDROcodone/acetaminophen (*CRX) 5-325 MG TABLET 1 TAB PO ×4 (01:24→22:34)
[2023-08-02] MEDS: HYDROcodone/acetaminophen (*CRX) 10-325 MG TABLET 1 TAB PO ×4 (04:01→13:22)
[2023-08-02] MEDS: SIMETHICONE 80 MG TAB.CHEW PO ×3 (04:02→22:34)
[2023-08-02] MEDS: MULTIVIT/MIN/PREN/FOL AC/IRON TABLET 1 TAB PO (07:05)
[2023-08-02] MEDS: LORATADINE 10 MG TABLET PO (07:06)
[2023-08-02] MEDS: DOCUSATE SODIUM 100 MG CAPSULE PO ×2 (07:06→16:32)
[2023-08-02] MEDS: FAMOTIDINE 20 MG TABLET PO (07:06)
--- NOTE | 2023-08-02 07:37 | PM.OBDSVD ---
DS: Admitting Diagnosis Discharge Date 08/02/2023 Admitting Diagnosis DS: Discharge Diagnosis Discharge Diagnosis (1) Arrest of dilation, delivered, current hospitalization: Code(s): O62.1 - Secondary uterine inertia Status: Acute OB - DS: Summary OB Procedures : None OB Procedures Intrapartum: OB Procedures: : None Peripartum Data Procedures: Procedures Operation Date: 07/31/23 00:30 Actual Procedure Side Surgeon p Section Bobby Velazco MD Time Spent with Patient Time attestation: Total time spent providing and/or coordinating discharge services: DS: Data Data Completed and Pending Pending studies at discharge: Pending at discharge 07/31/23 01:47 Surgical [PTH] Routine Discharge Plan Discharge Discharging Clinician: Sharif Brower Patient Disposition: Home, Self-Care Activity: no straining, no driving, follow weight bearing status and pelvic rest Diet: as tolerated Patient Instructions: Antibiotic Form Stand Alone Forms: General Discharge Information Follow-up/Referrals: Bobby Velazco MD [Physician] - 3 Weeks Discharge Medications: New hydrocodone-acetaminophen 5-325 mg Tablet 1 tablet PO Q3H PRN (Reason: Moderate Pain (4-6)) Qty: 20 0RF ibuprofen 600 mg Tablet 600 mg PO Q6H PRN (Reason: Cramping) Qty: 20 0RF Continued famotidine [Pepcid] 20 mg tablet 20 mg PO DAILY ondansetron HCl 4 mg tablet 4 mg PO Q6H PRN (Reason: nausea and vomiting) Qty: 30 1RF Zyrtec 1 cap PO BID ferrous sulfate 325 mg (65 mg iron) Tablet 325 mg PO DAILY Vitamin Tablet 1 tablet PO DAILY Discontinued aspirin 81 mg tablet,delayed release (DR/EC) 81 mg PO DAILY Date of admission: 07/29/23 07:27 Primary Care Provider: Ketan,Babak Chase Admitting Provider: Bobby Velazco Attending physician on admission: Bobby Velazco Condition: Stable
[2023-08-02 08:04] VITALS: BP 121/84; PULSE 76; RESP 16; TEMP 36.3; O2SAT 98
[2023-08-02 19:25] VITALS: BP 131/85; PULSE 91; RESP 16; TEMP 36.7; O2SAT 99
--- NOTE | 2023-08-02 23:16 | PC.NURSE ---
08/02/2023 at 0200 Daylight Savings Time For Daylight Savings Time Ending in the Fall - Clocks are moved back. For [facility], the time of change occurs at 0200 hrs. Time is taken from the triple drum operator. This entry on the patient's chart recognizes the change in time reflected during documentation. Example: 2 entries for vital signs may be charted for 0200 hrs.
[2023-08-03] MEDS: SIMETHICONE 80 MG TAB.CHEW PO (02:50)
[2023-08-03] MEDS: IBUPROFEN 600 MG TABLET PO ×2 (02:50→12:11)
[2023-08-03] MEDS: HYDROcodone/acetaminophen (*CRX) 5-325 MG TABLET 1 TAB PO ×3 (02:51→12:12)
--- NOTE | 2023-08-03 07:19 | PC.NURSE ---
Patient viewed the discharge video Mother & Baby Care, The First Two Weeks . Patient was given the opportunity and encouraged to ask questions. Patient verbalized understanding of information shared and has been given the mother/baby guide for home reference.
[2023-08-03 07:50] VITALS: BP 129/88; PULSE 80; RESP 18; TEMP 36.5; O2SAT 100
[2023-08-03] MEDS: DOCUSATE SODIUM 100 MG CAPSULE PO (08:37)
[2023-08-03] MEDS: MULTIVIT/MIN/PREN/FOL AC/IRON TABLET 1 TAB PO (08:37)
[2023-08-03] MEDS: FAMOTIDINE 20 MG TABLET PO (08:37)
[2023-08-03] MEDS: LORATADINE 10 MG TABLET PO (08:37)
--- NOTE | 2023-08-03 15:32 | PC.NURSE ---
[id number] Introductions were made, then consulted with patient to assess needs related to . Mother led the conversation with her?plans to feed?her infant, the?experience so far and we discussed the option for protecting , milk supply and feeding infant. Mother voiced understanding of information and there was good discussion of questions, answers and the Plastics Supervisor was in the room for a time as well. Infant recently had 59mls of formula so there will not be practice soon. Encouraged understanding of the benefits of skin to skin (demonstrating unwrapping infant and placing upright on her chest), stimulating with massage touch, changing positions to encourage wakefulness, how to watch for early feeding cues, responsive feeding, feeding on demand (aiming for 8-12 times in 24 hours, about every 2-3 hours), milk production, building/maintaining a milk supply, duration of feeding, signs of adequate intake/output and how to record on the feeding sheet. Reviewed positioning and ear, shoulder, hip alignment, supporting the breast to facilitate a deep latch, asymmetrical latch (off-center), leading with the chin with a big, open, wide gape and body close to mother. Resources provided for inpatient/outpatient with feeding sheet and the mom/baby guide. Educational handouts were given as additional resources and reviewed. Parents voiced understanding of information. Reported to the primary RN.
[2023-08-04 08:29] VITALS: BP 132/82; PULSE 82; RESP 18; TEMP 36.7; O2SAT 100
== END 2023-08-03 14:30 | disposition home or self-care (01) | DRG 540 ==
LOC: ANHOB2 08-03 12:21 → ANHLDR 08-04 09:14 → ANHOB2 08-04 09:14
PROVIDERS: Admitting Provider Student in an Organized Health Care Education/Training Program; PCP Family Medicine; Visit Provider Obstetrics & Gynecology
PROC: 10D00Z1 Extraction of Products of Conception, Low, Open Approach (ICD-10-PCS; CPT 59514; principal; 2023-07-31 00:30)
DX: O62.1 Secondary uterine inertia (principal); O34.83 Maternal care for other abnormalities of pelvic organs, third trimester; N80.9 Endometriosis, unspecified; O62.0 Primary inadequate contractions; Z67.91 Unspecified blood type, Rh negative; Z79.82 Long term (current) use of aspirin; Z3A.39 39 weeks gestation of pregnancy; Z37.0 Single live birth
CPT/HCPCS: 36415; 85025; 86592; 86850; 86900; 86901; 88307; A9270; J0456; J0690; J1885; J2175; J2270; J2274; J2371; J2405; J2590; J2795; J3010; J7120

== ENCOUNTER 2025-02-10 14:05 | Outpatient (CLI) | payer BC, SELFPAY ==
--- OUTSIDE RECORDS SUMMARY | 2025-02-10 14:09 | XMS_ITS | Patient Health Record ---
Author Organization [facility] Address [address] [place], [place] [phone] Care Team Providers Care Roller Staker Name Role Phone Babak Aceves Unavailable Unavailable MYRANDA LARRY Unavailable [phone] Allergies No Known Allergies Reason For Referral No Information Medications Medication SIG (Take, Route, Frequency, Duration) Notes Start Date End Date Status methylPREDNISolone 4 MG as directed Orally one pack 024 Active Immunizations Vaccine Route Administration Date Status Comme nts Influenza, high dose seasonal Unknown 01/20/2024 Refuse d Pneumococcal conjugate PCV 13 Unknown 01/20/2024 Refuse d Social History Tobacco Use: Social History Observation Description Date Details (start date - stop date) Never Smoker NA - NA Tobacco Control (Standard) Question Answer Notes Tobacco use: Nonsmoker Encounters Encounter Location Date Provider Diagnosis [facility] [address] [facility] [address] [place], [place] [id number] 02/18/2024 MYRANDA LARRY Other enthesopathy o f right foot and ankle M77.51 ; Metatarsalgia of right foot M77.41 ; Metatarsalgia of left foot M77.42 and Pain in right foot M79.671 Assessments Encounter Date Diagnosis (ICD Code) Assessment Notes Treatment Notes Treatment Clinical Notes Section Notes 02/18/2024 Other enthesopathy of right foot and ankle (ICD-10 - M77.51) Capsulitis / Bursitis: I discussed anti-inflammatory treatment options and various means of immobilization with the patient. I educated the patient on icing and stretching, supportive shoegear, and the use of orthotic devices and bracing. 02/18/2024 Metatarsalgia of right foot (ICD-10 - M77.41) 02/18/2024 Metatarsalgia of left foot (ICD-10 - M77.42) 02/18/2024 Pain in right foot (ICD-10 - M79.671) Plan Of Treatment No Information Insurance Providers Payer Name Payer Address Payer Phone Subscriber Number Group Number Insured Name Patient Relationship to Insured Coverage Start Date Coverage End Date [facility] ([facility]) ATTN CLAIMS [address] [place] [address] [id number] Stephy Resendiz Self - patient is the insured
--- OUTSIDE RECORDS SUMMARY | 2025-02-10 14:09 | XMS_ITS | Data Portability ---
Author Organization [facility] [place] Address [address] [place] [address] [place] [address] Assessment No assessment recorded. Plan of Treatment Reminders Order Date Submit Date Provider Last Modified By Organization Details Last Modified Time Details Appointments None recorded. Lab None recorded. Referral None recorded. Procedures None recorded. Surgeries None recorded. Imaging US, pelvis [address], [address], [address], [place], [address], 21:01:15 US, pelvis [address], [address], [address], [place], [address], 15:35:57 US, transvagina l [address], [address], [address], [place], [address], 18:21:56 Medication Orders Pregnyl 10,000 unit intramuscul ar solution 2020 021 [email or web address] 1 Not available 18:48:12 Patient TargetsNo targets recorded. Patient InstructionsNo instructions recorded. Reason for Referral None Reported. Results Created Date Observation Date Name Description Value Unit Range Abnormal Flag Note LastModifiedBy Organization Detail LastModifiedTime 12/22/19 21 12/25/2020 US, trans vagin al No observ ation record ed. [email or web address] [place] [address] [address], [place], [address], 12/25/2020 11:55:53 12/22/19 US, trans vagin al No observ ation record ed. layran Flor [address], [place], [address], 12/24/2020 18:06:52 12/25/1912/31/2020 US, pelvi s No observ ation record ed. [facility] [address], [place], [address], 12/31/2020 17:35:24 12/25/19 US, pelvi s No observ ation record ed. stephran [address], [place], [address], 12/25/2020 11:32:56 12/27/1912/31/2020 US, pelvi s No observ ation record ed. [facility] [address], [place], [address], 12/31/2020 17:48:01 12/27/19 21 US, pelvi s No observ ation record ed. layran Flor [address], [place], [address], 12/26/2020 15:41:57 Result Notes None recorded. Procedures Surgical History Date Name Laterality Status Provider Name and Address Organization Details Recorded Time 12/28/19 21 intrauterine artificial insemination completed Jaylyn Wu [facility] 02/13/2022 09:30:10 10/30/19 21 intrauterine artificial insemination completed Jaylyn Wu [facility] 02/13/2022 09:30:16 05/15/20 18 Laparoscopy completed Jaylyn Wu [facility] 10/05/2020 14:42:55 Imaging Results Imaging Date Name Status LastModified by Organization Details LastModified Time 12/25/2020 US, transvaginal completed [email or web address] [place] [address], [place], [address], 12/25/2020 11:55:53 12/21/2020 US, transvaginal completed layran Flor [address], [place], [address], 12/24/2020 18:06:52 12/31/2020 US, pelvis completed [facility] [address], [place], [address], 12/31/2020 17:35:24 12/24/2020 US, pelvis completed layran Flor [address], [place], [address], 12/25/2020 11:32:56 12/31/2020 US, pelvis completed [facility] [address], [place], [address], 12/31/2020 17:48:01 12/26/2020 US, pelvis completed layran Flor [address], [place], [address], 12/26/2020 15:41:57 Procedure Notes None recorded. Medical Equipment None Reported. Allergies Allergen ID Allergen Name Allergen Category Reaction Reaction Severity Criticality Documentation Date Start Date Code Code System Note Provider Name and Address Organization Details Recorded Time 04884 house dust mite environme nt Not available Not available Not available 10/05/2020 10303 UNK Jaylyn middleton [facility] 14:39:32 08958 bee pollen environme nt,medica tion Not available Not available Not available 10/05/2020 81689 7 RxNorm Jaylyn middleton [facility] 14:39:43 53062 ragweed pollen environme nt Not available Not available Not available 10/05/[address] [facility] 14:39:51 Medications Name Sig Start Date Stop Date Status Note LastModified by Organization Details LastModified Time clomiphen e citrate 50 mg tablet TAKE 1 TABLET ON DAYS 5 9 active Not Available Not Available No t Available Pregnyl 10,000 unit intramusc ular solution Inject 68826 units by intramus cular route for 1 day. 2020 active patient given pregnyl injectio n into Right hip lot [id number] exp December 29, 2021 Not Available Not Available Not Available letrozole 2.5 mg tablet TAKE 1 TABLET BY MOUTH EVERY DAY ON DAYS 3 THROUGH 7 OF CYCLE 12/11 completed Not Available Not Available Not Available Vitals Date Recorded Body height Provider Name an d Address Organization Details Last Updated DateTime 12/26/2020 156.21 cm Jaylyn Wu [facility] 12/26/2020 18:45:56 Date Recorded Body height Body mass index (BMI) Body weight Systolic blood pressure Diastolic blood pressure Provider Name and Address Organization Details Last Updated DateTime 12/27/2020 156.21 cm 26.4 kg/m2 05302.12 g 123 mm[Hg] 84 mm[Hg] Jaylyn Wu [facility] 11:04:03 Social History Question Answer Notes LastModified by Organizat ion Details LastModified Time Tobacco Smoking Status Never [facility]oker [facility] 10/05/2020 14:42:12 If You Are , What Was Your Level Of Alcohol Consumption Prior To ? None [email or web address] Information not available 12/27/2020 Are You Blind Or Do You Have Difficulty Seeing? No [email or web address] Information n ot available 12/27/2020 What Is Your Level Of Caffeine Consumption? Occasional [email or web address] Information not available 12/27/2020 In The 14 Days Before Symptom Onset, Have You Had Close Contact With A Laboratory-confirm ed COVID-19 While That Case Was Ill? No [email or web address] Information n ot available 12/27/2020 In The 14 Days Before Symptom Onset, Have You Had Close Contact With A Person Who Is Under Investigation For COVID-19 While That Person Was Ill? No [email or web address] Information not available 12/27/2020 Have You Been To An Area Known To Be High Risk For COVID-19? No [email or web address] Information not available 12/27/2020 Are You Deaf Or Do You Have Serious Difficulty Hearing? No [email or web address] Information not available 12/27/2020 What Type Of Diet Are You Following? REGULAR [email or web address] Information n ot available 12/27/2020 What Was The Date Of Your Most Recent Tobacco Screening? 12/27/2020 [email or web address] Information not available 12/27/2020 Have You Ever Been Counseled For Unhealthy Alcohol Use? No [email or web address] Information not available 12/27/2020 Do You Use Your Seat Belt Or Car Seat Routinely? Yes [email or web address] Information not available 12/27/2020 Do You Have Smoke And Carbon Monoxide Detectors In Your Home? Yes [email or web address] Information not available 12/27/2020 How Much Tobacco Do You Smoke? No [email or web address] Information not available 10/05/2020 Do You Use Sunscreen Routinely? Yes [email or web address] Information not available 12/27/2020 Has Tobacco Cessation Counseling Been Provided? No [email or web address] Information not available 12/27/2020 Sex: Unknown Functional Status Question Answer Note LastModified by Organizat ion Details LastModified Time Do you use any illicit or recreational drugs? No [email or web address] Information not available 12/27/2020 Do you or have you ever used any other forms of tobacco or nicotine? No [email or web address] Information not available 12/27/2020 What is your level of alcohol consumption? Occasional [email or web address] Information not available 10/05/2020 Do you or have you ever used smokeless tobacco? Never used smokeless tobacco [email or web address] Information not available 10/05/2020 Are you able to walk? YESWOREST [email or web address] Information not available 12/27/2020 Do you or have you ever used e-cigarettes or vape? Never used electronic cigarettes Information not available 10/05/2020 What is your exercise level? Occasional [email or web address] Information not available 10/05/2020 Mental Status Question Answer Note LastModified by Organization D etails LastModified Time Do you feel stressed (tense, restless, nervous, or anxious, or unable to sleep at night)? [id number] [email or web address] Information not available 12/27/2020 Family History Relationship Description Onset Age of this Age Resolved Age Notes LastModified by Organization Details LastModified Time Mother Hypertensive disorder [email or web address] Not available 10/05 14:41:00 Mother Cyst of ovary [email or web address] Not available 10/05 14:41:12 Mother Polycystic ovary syndrome [email or web address] Not available 10/05 14:41:22 Paternal Grandmother Malignant tumor of breast [email or web address] Not available 10/05 14:41:33 Paternal Grandfather Diabetes mellitus [email or web address] Not available 10/05 14:41:42 Sister Cyst of ovary [email or web address] Not available 10/05 14:41:51 Medical History Condition Response Allergies (Food, seasonal, environmental ) N Other N Breast Cancer N Drug/Latex Allergies/Reactions N Blood Transfusion N Dermatologic Disorders N Lung Disease N Defects or Inherited Disease Y Breast Problem N Gestational Diabetes N Hematologic disorders N Anesthesia Complications N History of STI N Deep Vein Thrombosis N Polycystic ovary syndrome N Anxiety Disorder N Autoimmune disease N Arthritis N Infertility N Polyps N Acid Reflux (GERD) N History of abnormal pap N Cancer N Stroke N Varicosities N Neurologic/Epilepsy N Endometriosis Y High Cholesterol N Headaches N Fibromyalgia N Kidney Disease N Heart Problems N Kidney or Bladder Problems N Thyroid Problems N GI Problems N Eating Disorder N Anemia N Art (IVF or FET) N Psychiatric Illness N Ovarian Cancer N Diabetes N Pulmonary (TB, Asthma) N Hepatitis/Liver Disease N Eczema N Urinary Tract Infection N Abuse/Domestic Violence N Asthma N Trauma/Violence N Depression/ depression N Heart Disease N Pre-Eclampsia N Hypertension N Osteoporosis N Thrombophilias N Gynecological History Statement/Question Response Abnormal Pap N Date of Last Pap Smear Current Control Method None Date of LMP 12/13/2020 LMP Approximate Obstetrics History GPAL:G 0 P 0 0 0 0 Type Value Living 0 Total 0 Past Encounters Encounter ID Performer Location Encounter Start Date Encounter Closed Date Diagnosis/Indication Diagnosis SNOMED-CT Code Diagnosis ICD10 Code Diagnosis Note [id number] [facility] [address],[place] [address] 10/05/2020 14:02:09 10/05/2020 15:45:43 Female infertility 3644249 N97.9 [id number] MD Mike Mathur [address],[place] [address] 10/29/2020 09:26:44 11/01/2020 10:27:31 Female infertility 4036755 N97.9 [id number] MD Mike Mathur [address],[place] [address] 10/30/2020 08:44:15 11/01/2020 10:27:55 Trying to conceive [id number] Z31.[id number] [facility] [address],[place] [address] 10/30/2020 13:22:24 10/30/2020 15:10:46 Artificial insemination 81604007 Z31.83 [place] [id number] MD Mike Mathur [address],[place] [address] 12/21/2020 13:00:42 12/21/2020 13:45:40 Female infertility 6743554 N97.9 [id number] MD Mike Mathur [address],[place] [address] 12/24/2020 11:31:06 12/24/2020 12:21:01 Female infertility 1003329 N97.9 [id number] MD Mike Mathur [address],[place] [address] 12/26/2020 11:14:05 12/26/2020 12:24:51 Female infertility 6593597 N97.9 [id number] MD Mike Mathur [address],[place] [address] 12/26/2020 18:44:09 12/31/2020 13:18:37 Trying to conceive [id number] Z31.9 [id number] Robbie Poole MD [place] [address] [address] 12/27/2020 10:56:34 12/31/2020 13:47:43 Female infertility 6233549 N97.9 intrauteri ne Inseminati on was performed without complicati ons. She tolerated the procedure well. Health Concerns Section Related Observation LastModified by Organization Detai ls LastModified Time None Recorded Concern Status LastModified by Organization Details LastModified Time None Recorded Advance Directives Directive None Recorded Payers Encounter Date Sequence Insurance Name Policy Number Policy Moyer Covered Member ID Moyer Member ID Guarantor Name 12/21/2020 1 [place] [id number] Marco Antonio C Mangoff [id number] Stephy Mangoff 12/24/2020 1 [place] [id number] Marco Antonio C Mangoff [id number] Stephy Mangoff 12/26/2020 1 [place] [id number] Marco Antonio C Mangoff [id number] Stephy Mangoff 12/26/2020 1 [place] [id number] Marco Antonio C Mangoff [id number] Stephy Mangoff 12/27/2020 1 [place] [id number] Marco Antonio C Mangoff [id number] Stephy Mangoff Notes Date Note Type Note Provider Name and Address Organization Details Recorded Time 12/27/2020 text/html This patient is a 35-year-old female presents for intrauterine insemination. Robbie Poole MD [address], [place], [address], [facility] 12/28/2020 21:29:47 OBGyn Episode No OBEpisode recorded.
--- OUTSIDE RECORDS SUMMARY | 2025-02-10 14:09 | XMS_ITS | Clinical Summary ---
Author Organization [facility] Address [address] [place] [address] Care Team Providers Care Bone Drier Operator Name Role Phone Babak Aceves MD Primary Care Provid er Allergies Active Allergy Reactions Criticality Noted Date Comments House Dust Mite Sneezing Low 06/13/2022 Ragweed Pollen Sneezing Low 06/13/2022 Venom-Honey Bee Swelling Medium 06/13/2022 Medications cetirizine (ZyrTEC) 10 mg tablet Take 1 tablet (10 mg total) by mouth 2 (two) times a day Active vit 93/iron fum/folic ( FORMULA ORAL) Take by mouth Ac tive cyanocobalamin, vitamin B-12, (VITAMIN B-12 ORAL) Take by mouth Active pyridoxine HCl, vitamin B6, (VITAMIN B-6 ORAL) Take by mouth Active Lactobacillus acidophilus (PROBIOTIC ORAL) Take by mouth Active MAGNESIUM ORAL Take by mouth A ctive ubidecarenone (CO Q-10 ORAL) Take by mouth A ctive ascorbic acid (VITAMIN C ORAL) Take by mouth Active cholecalciferol, vitamin D3, (VITAMIN D3 ORAL) Take by mouth Active ASHWAGANDHA ROOT EXTRACT ORAL Take by mouth Act tay garlic tablet Take by mouth Ac tive meloxicam (MOBIC) 15 mg tabletIndication s:Chronic left shoulder pain Take 1 tablet (15 mg total) by mouth daily 30 tablet 5 2 Active methylPREDNISolo ne (MEDROL DOSEPACK) 4 mg Dosepack as directed Orally 4 Active Junel FE 10/17, 28, 1 mg-20 mcg (21)/75 mg (7) per tablet Take 1 tablet by mouth daily Active sertraline (ZOLOFT) 25 mg tablet Take 1 tablet (25 mg total) by mouth daily Active Active Problems No known active problems Immunizations Immunization Administration Dates Next Due Influenza, Unspecified 09/08/2023(Deferr ed: Patient Refused),06/13/2022(Deferred: Patient Refused),06/28/2021(Deferred: Patient Refused) Tdap 06/12/2023 Surgical History Surgery Date Site/Laterality Comments OOPHERECTOMY Medical History Medical History Date Comments Endometriosis Family History Medical History Relation Name Comments Diabetes Brother COPD Maternal Grandmother Stroke Maternal Grandmother Hypertension Mother Pancreatitis Mother Dementia Paternal Grandfather Heart disease Paternal Grandfather Breast cancer Paternal Grandmother Skin cancer Paternal Grandmother Fibroids Sister 1 Polycystic ovary syndrome Sister 2 Relation Name Status Comments Brother Maternal Grandmother Mother Alive Paternal Grandfather Paternal Grandmother Sister 1 Sister 2 Alive Social History Tobacco Use Types Packs/Day Years Used Date Smoking Tobacco: Never Smokeless Tobacco: Never Tobacco Cessation:Counseling Given: Not Answered AUDIT-C Answer Date Recorded Q1: How often do you have a drink containing alc ohol? 2-3 times a week 01/25/2024 Q2: How many drinks containi ng alcohol do you have on a typical day when you are drinking? 1 or 2 01/25/2024 Q3: How often do you have si x or more drinks on one occasion? Never 01/25/2024 PHQ-2 Answer Date Recorded PHQ-2 Total Score 0 01/25/2024 Personal Safety Answer Date Recorded Getting School Help Needed Not on file 11/28 Comments No Sex and Gender Information Value Date Recorded Sex Assigned at Not on file Legal Sex Female 7:55 PM [employer] Gender Identity Not on file Sexual Orientation Not on file Obstetrics History Last Filed Vital Signs Vital Sign Reading Time Taken Comments Blood Pressure 104/62 01/25/2024 12:52 PM CDT Pulse 72 01/25/2024 12:52 PM CDT Temperature 36.8 C (98.2 F) 01/25/2024 12:52 PM CDT Respiratory Rate 18 01/25/2024 12:52 PM CDT Oxygen Saturation 98% 01/25/2024 12:52 PM CDT Inhaled Oxygen Concentration - - Weight 74.6 kg (164 lb 6.4 oz) 01/25/2024 12:52 PM CDT Height 157.5 cm (5' 2 ) 01/25/2024 12:52 PM CDT Body Mass Index 30.07 01/25/2024 12:52 PM CDT Plan of Treatment Health Maintenance Due Date Last Done Comments Cervical Cancer Screening 1985 Hepatitis C Screening 1985 Varicella Vaccines (1 of 2 - 13+ 2-dose series) 1998 Hepatitis B Screening 2003 Regular Well Visit/Exam 18-64 2003 Depression Screening 01/24/2025 01/25/2024, 06/13/2022, 06/13/2022 Influenza Vaccine (Season Ended) 2025 DTaP/Tdap/Td Vaccine (2 - Td or Tdap) 06/12/2033 06/12/2023 HPV Vaccines Aged Out No longer eligi ble based on patient's age to complete this topic Pneumococcal vaccine <65 Aged Out No longer eligible based on patient's age to complete this topic Insurance Care Teams Bone Drier Operator Relationship Specialty Start Date End Date Babak Aceves MD [address] [place], [place] [phone] PCP - General Family Medicine 06/13/22
--- OUTSIDE RECORDS SUMMARY | 2025-02-10 14:09 | XMS_ITS ---
Author Organization [facility] Address [address] [place], [place] [id number] Care Team Providers Care Apprentice Painter Neckties Name Role Phone Babak Aceves Unavailable Unavailable ALEXANDRAJulienne MYRANDA Unavailable [phone] Allergies No Known Allergies REASON FOR VISIT The patient has had foot pain in both heels for over a year. She saw a different candy vendor who recommended different shoes but it did not help much. She gave to her son 6 months ago and is no longer breast feeding. Since her the pain has gotten worse in both heels. It is sharp shooting and greatest when she first gets out of bed. She also notices that her feet got bigger since her son was born. She is also developing some pain to the outside of the right foot Medications Medication SIG (Take, Route, Frequency, Duration) [...] (Standard) Question Answer Notes Tobacco use: Nonsmoker Vital Signs Height 62 in 01/20/2024 Weight 160 lbs 01/20/2024 BMI 29.26 kg/m2 01/20/2024 Height-cm 157.48 cm 01/20/2024 Weight-kg 72.57 kg 01/20/2024 Encounters Encounter Location Date Provider Diagnosis [facility] [address] [facility] [address] [place], [place] [id number] 01/20/2024 MYRANDA LARRY Plantar fascial fibromatosis M72.2 ; Peroneal tendinitis, right leg M76.71 and Pain in right foot M79.671 Assessments Encounter Date Diagnosis (ICD Code) Assessment Notes Treatment Notes Treatment Clinical Notes Section Notes 01/20/2024 Plantar fascial fibromatosis (ICD-10 - M72.2) Plantar Fascitis: I discussed anti-inflammatory treatment options and various means of pronation control with the patient. I educated the patient on icing and stretching, supportive shoegear, and the use of orthotic devices. Shoe Recommendation: Advised patient on appropriate shoe gear for protection, healing and good foot health. Orthotic Recommendation: I recommended functional orthotics for the patient. 01/20/2024 Peroneal tendinitis, right leg (ICD-10 - M76.71) Peroneal Tendonitis: I discussed anti-inflammatory treatment options and various means of immobilization with the patient. I educated the patient on icing and stretching, supportive shoegear, and the use of orthotic devices and bracing. 01/20/2024 Pain in right foot (ICD-10 - M79.671) Plan Of Treatment Medication Medication Name Sig Start Date Stop Date Notes methylPREDNISolone 4 MG as directed Orally 01/20/2024 one pack Treatment Notes Assessment Notes Plantar fascial fibromatosis Plantar Fascitis: I discussed anti-inflammatory treatment options and various means of pronation control with the patient. I educated the patient on icing and stretching, supportive shoegear, and the use of orthotic devices. Shoe Recommendation: Advised patient on appropriate shoe gear for protection, healing and good foot health. Orthotic Recommendation: I recommended functional orthotics for the patient. Peroneal tendinitis, right leg Peroneal Tendonitis: I discussed anti-inflammatory treatment options and various means of immobilization with the patient. I educated the patient on icing and stretching, supportive shoegear, and the use of orthotic devices and bracing. Next Appt Details Follow Up: 3 Weeks, Reason: See how oral steroid, better shoes, and OTC inserts helped Progress Notes * Alia PINEDA: 5 (39 yo F)Acc No.[id number]:01/20/2024 Progress Notes Patient: Stephy GARCIA Provider: Shirlene Larry DPM :1985 A ge:38 Y S ex:Female Date:01/20/2024 Address:[address] [place] [address] [id number] Subjective: * Chief Complaints: * 1 . The patient has had foot pain in both heels for over a year. She saw a different candy vendor who recommended different shoes but it did not help much. She gave to her son 6 months ago and is no longer breast feeding. Since her the pain has gotten worse in both heels. It is sharp shooting and greatest when she first gets out of bed. She also notices that her feet got bigger since her son was born. She is also developing some pain to the outside of the right foot. * HPI: H PI: New Complaint P atdimitri presents for a new patient consultation., Patient complains of an issue to right foot pain. Patient states pain is located on lateral side of foot and runs through the top of her foot. Patient has random shooting pains. Patient also states she had a hairline fracture 2 years ago in the top of her right foot - she does not think her current pain is related to this. Patient experiencing bilateral pain in the AM after waking up located in the bottom of her feet, patient states pain does subside after a while and does not last all day. , MA: LB. * ROS: G eneral / Constitutional: Patient denies c hills, fever, weakness, night sweats. M usculoskeletal: Patient denies c hildhood foot problems, weakness. P atient complains of h eel pain, arch pain. P eripheral Vascular: Patient denies u lceration of feet, cold extremities. S kin: Patient denies u lcerations, discoloration. N eurologic: Patient denies b alance difficulty, confusion, difficulty speaking, dizziness. * Medical History: * Family History: M other: hypertension. B rother: gout. * Social History: T obacco Use: T obacco Control (Standard) T obacco use: N onsmoker. * Medications: N one * Allergies: N .K.D.A. Objective: * Vitals: S hoe Size: 7, Wt:160lbs, Wt-k.57 kg, Ht: 62 in, Ht-cm: 157.48 cm, BMI:29.26Index, Body Surface Area: 1.78. * Examination: C onstitutional: Constitutional T he patient is awake, alert, well developed, well groomed and well nourished.. D ermatologic: Skin findings: S kin is warm, dry, supple with no breaks in the skin.. V ascular: Dorsalis pedis pulse: 2 /4, bilateral. Posterior tibial pulse: 2 /4, bilaterally. Capillary refill: l ess than 3 seconds. Edema: N o edema, bilateral. N eurologic: Gross sensation G ross sensation is intact to light touch.. M usculoskeletal: Muscle Strength M uscle strength is 5/5 in regards to dorsiflexion, plantarflexion, inversion, and eversion in bilateral lower extremities.. Pain on palpation m edial band of the right plantar fascia near its attachment to the calcaneus, medial band of the left plantar fascia near its attachment to the calcaneus, peroneal tendons of the right foot.. Assessment: * Assessment: 1. P lantar fascial fibromatosis - M72.2 (Primary) 2 . P eroneal tendinitis, right leg - M76.71 3 . P ain in right foot - M79.671 Plan: * Treatment: 2. P eroneal tendinitis, right leg Notes: Peroneal Tendonitis: I discussed anti-inflammatory treatment options and various means of immobilization with the patient. I educated the patient on icing and stretching, supportive shoegear, and the use of orthotic devices and bracing. * Immunizations: Influenza, high dose seasonal (Not administered - Refused: Patient decision) Pneumococcal conjugate PCV 13 (Not administered - Refused: Patient decision) Immunization record has been reviewed and updated. * Follow Up: 3 Weeks (Reason: See how oral steroid, better shoes, and OTC inserts helped) * Billing Information: * Visit Code: 34471 Office Visit, New Pt., Level 3. * Procedure Codes: * Electronic signature of MYRANDA LARRY DPM on 02/10/2025 at 02:09 PM CDT Sign off status: Pending * Provider: Shirlene Larry DPM Date: 0 01/20/2024 Generated for Sima spencer/Tere/Mehran on: 0 02/10/2025 02:09 PM CDT History and Physical Notes * HPI (History of Present Illness) Category Sub-Category Detail Notes Category Not es HPI New Complaint Patient presents for a new patient consultation., Patient complains of an issue to right foot pain. Patient states pain is located on lateral side of foot and runs through the top of her foot. Patient has random shooting pains. Patient also states she had a hairline fracture 2 years ago in the top of her right foot - she does not think her current pain is related to this. Patient experiencing bilateral pain in the AM after waking up located in the bottom of her feet, patient states pain does subside after a while and does not last all day. , MA: LB Examination Category Sub-Category Detail Notes Category Not es Dermatologic Skin findings: Skin is warm, dr y, supple with no breaks in the skin. Neurologic Gross sensation Gross sensation is intact to light touch. Vascular Dorsalis pedis pulse: 2/4, bilateral Edema: No edema, bilateral Capillary refill: less than 3 seconds Posterior tibial pulse: 2/4, bilaterally Musculoskeletal Muscle Strength Muscle strength is 5/5 in regards to dorsiflexion, plantarflexion, inversion, and eversion in bilateral lower extremities. Pain on palpation medial band of the r ight plantar fascia near its attachment to the calcaneus, medial band of the left plantar fascia near its attachment to the calcaneus, peroneal tendons of the right foot. Constitutional Constitutional The patient is a wake, alert, well developed, well groomed and well nourished.
--- OUTSIDE RECORDS SUMMARY | 2025-02-10 14:09 | XMS_ITS | Continuity of Care Document ---
Author Organization [facility] Address [address] [address] Phone Care Team Providers Care Coating Engineer Name Role Phone Chanelle Awan MD Unavailable [...] VISIT [facility], [address] [place] [address], [id number], [place] tel:[phone] [facility] [place] (chief complaint) Other allergic rhinitisIdiopathi c urticaria 0 Emperatriz Roca. [address] [facility], [place] [address], [place], [place], [id number] , [place]. tel:[phone] Referring Provider: Ledy Adler, [address], [place], [address]. tel:[phone] New (Level 3) OFFICE/OUTPA TIENT VISIT [facility], [address] [place] [address] [address], [place], [place], [id number], tel:[phone] [facility] [place] (chief complaint) Other allergic rhinitisIdiopathi c urticaria 0 0 Emperatrizkulwant Roca. [address] [facility], [facility] [address], [place], [place], [id number] , [place]. tel: [phone] Referring Provider: Ledy Adler, [address], [place], [address]. tel:[phone] Family History Family Member Type Diagnosis Age At Onset Mother Problem (finding) Digestive problems Payers Payer name Insurance type Covered alliance party ID Authoriza tion(s) No Information Social History [...] 2 cats at home. 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 Functional Status [...]
--- OUTSIDE RECORDS SUMMARY | 2025-02-10 14:09 | XMS_ITS | Patient Health Record ---
Author Organization 1 OF [facility] Address [address] [facility] [address] [place] [address] Care Team Providers Care Baseball Glove Shaper Name Role Phone UNKNOWN, UNKNOWN Primary Care Provider Unavailab Kevin Bajwa Unavailable Allergies No Known Allergies Reason For Referral No Information Medications Medication SIG (Take, Route, Fr equency, Duration) Notes Start Date End Date Status Colon Cleanse - as directed Orally Active ZyrTEC Allergy 10 MG 1 tablet Orally Onc e a day for 30 day(s) Active Social History Tobacco Use: Social History Observation Description Date Details (start date - stop date) Never Smoker NA - NA Tobacco Use/Smoking Question Answer Notes Are you a nonsmoker Problems Problem Type SNOMED Code ICD Code Onset Dates Problem Status W/U Status Risk Notes Problem 402963852 Pronation deformity of left foot (M21.6X2) Active confirmed Problem 282895006 Pronation deformity of right foot (M21.6X1) Active confirmed Problem 45698933 Vitamin D deficiency (E55.9) Active confirmed Plan Of Treatment No Information Insurance Providers Payer Name Payer Address Payer Phone Subscriber Number Group Number Insured Name Patient Relationship to Insured Coverage Start Date Coverage End Date [facility] [address] [place] [address] [phone] [id number] Stephy Resendiz Self - patient is the insured Medical (General) History Surgical History Surgery Date(Month/Year)
--- OUTSIDE RECORDS SUMMARY | 2025-02-10 14:09 | XMS_ITS ---
Author Organization [facility] Address [address] [place], [place] [id number] Care Team Providers Care Teenage Babysitter Name Role Phone Babak Aceves Unavailable Unavailable MYRANDA LARRY Unavailable [phone] REASON FOR VISIT Plantar fasciitis fu Encounters Encounter Location Date Provider Diagnosis [facility] [place] [id number] [facility] [address] [place], [place] [id number] 03/24/2024 MYRANDA LARRY Plan Of Treatment No Information Progress Notes * MOICYNDYKarthikcristineDOB: 5 (39 yo F)Acc No.[id number]:03/24/2024 Patient: Stephy GARCIA Provider: Shirlene Larry DPM :1985 A ge:38 Y S ex:Female Date:03/24/2024 Address[address] [place], [place] Subjective: * Chief Complaints: * 1 . Plantar fasciitis fu. * Medical History: Objective: * Vitals: Assessment: Plan: * Treatment: * Billing Information: * Visit Code: * Procedure Codes: * Electronic signature of MYRANDA LARRY DPM on 02/10/2025 at 02:09 PM CDT Sign off status: Pending * Provider: Shirlene Larry DPM Date: 03/24/2024 Generated for Sima spencer/Tere/eTransmitting on: 0 02/10/2025 02:09 PM CDT
--- OUTSIDE RECORDS SUMMARY | 2025-02-10 14:09 | XMS_ITS | Referral Summary ---
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
--- OUTSIDE RECORDS SUMMARY | 2025-02-10 14:09 | XMS_ITS | Data Portability ---
Author Organization [facility] Address [address] [place] [address] Care Team Providers Care Landscape Photographer Name Role Phone AKIKO TUBBS Primary Care Provider [phone] Assessment No assessment recorded. Plan of Treatment Reminders Order Date Submit Date Provider Last Modified By Organization Details Last Modified Time Details Appointments None recorded. Lab urinalysi s, dipstick 2016 017 [place] In-Office Order, Internal Use Only DO Not Attach Compendium DO Not Attach Compendium, Do Not Delete/merge, [id number] 19:33:19 Referral None recorded. Procedures None recorded. Surgeries None recorded. Imaging US, pelvis, complete - Pelvic US with Trans Vag. 2016 017 [facility] [place], [address], 7 15:47:11 Medication Orders None recorded. Patient TargetsNo targets recorded. Patient InstructionsNo instructions recorded. Reason for Referral None Reported. Results Created Date Observation Date Name Description Value Unit Range Abnormal Flag Note LastModifiedBy Organization Detail LastModifiedTime 11/13/19 17 11/13/2016 urina lysis , dipst ick Leukocytes Negati ve Not Available In-Office Order Internal Use Only DO Not Attach Compendium DO Not Attach Compendium, Do Not Delete/merge, [id number] 11/13/2016 19:00:00 11/13/19 17 11/13/2016 urina lysis , dipst ick Nitrite negati ve Not Available In-Office Order Internal Use Only DO Not Attach Compendium DO Not Attach Compendium, Do Not Delete/merge, [id number] 11/13/2016 19:00:00 11/13/19 17 11/13/2016 urina lysis , dipst ick Urobilinogen .2 Not Available In-Of fice Order Internal Use Only DO Not Attach Compendium DO Not Attach Compendium, Do Not Delete/merge, 11/13/2016 19:00:00 11/13/19 17 11/13/2016 urina lysis , dipst ick Protein Negati ve Not Available In-Office Order Internal Use Only DO Not Attach Compendium DO Not Attach Compendium, Do Not Delete/merge, 11/13/2016 19:00:00 11/13/19 17 11/13/2016 urina lysis , dipst ick pH 5.0 Not Available In-Office Order Internal Use Only DO Not Attach Compendium DO Not Attach Compendium, Do Not Delete/merge, 11/13/2016 19:00:00 11/13/19 17 11/13/2016 urina lysis , dipst ick Blood Negati ve Not Available In-Office Order Internal Use Only DO Not Attach Compendium DO Not Attach Compendium, Do Not Delete/merge, 11/13/2016 19:00:00 11/13/19 17 11/13/2016 urina lysis , dipst ick Specific [place] 1.000 Not Available In-Off ice Order Internal Use Only DO Not Attach Compendium DO Not Attach Compendium, Do Not Delete/merge, 11/13/2016 19:00:00 11/13/19 17 11/13/2016 urina lysis , dipst ick Ketone Negati ve Not Available In-Office Order Internal Use Only DO Not Attach Compendium DO Not Attach Compendium, Do Not Delete/merge, 11/13/2016 19:00:00 11/13/19 17 11/13/2016 urina lysis , dipst ick Bilirubin Negati ve Not Available In-Office Order Internal Use Only DO Not Attach Compendium DO Not Attach Compendium, Do Not Delete/merge, 11/13/2016 19:00:00 11/13/19 17 11/13/2016 urina lysis , dipst ick Glucose Negati ve Not Available In-Office Order Internal Use Only DO Not Attach Compendium DO Not Attach Compendium, Do Not Delete/merge, [id number] 11/13/2016 19:00:00 11/13/19 17 11/13/2016 urina lysis , dipst ick Appearance Clear Not Available In-Offi ce Order Internal Use Only DO Not Attach Compendium DO Not Attach Compendium, Do Not Delete/merge, [id number] 11/13/2016 19:00:00 11/13/19 17 11/13/2016 urina lysis , dipst ick Color Pale Yellow Not Available In-Office Order Internal Use Only DO Not Attach Compendium DO Not Attach Compendium, Do Not Delete/merge, [id number] 11/13/2016 19:00:00 Result Notes None recorded. Problems Name Problem SNOMED Code Status Onset Date Resolution Date Notes Provider Name and Address Organization Details Recorded Time Vitamin D deficiency 11233267 Active 2015 Location : None;Sev erity: Moderate ;Progres s: Stable;A dded By: Akiko Tubbs;Add to Current Problems : NO Not Available [facility] 7 09:52:43 Problem Notes None recorded. Medical Equipment None Reported. Medications Not known to be on any medication Vitals Date Recorded Body weight Oxygen saturation Oxygen saturation in Arterial blood by Pulse oximetry Heart rate Systolic blood pressure Diastolic blood pressure Provider Name and Address Organization Details Last Updated DateTime 7 07291.2 4 g 99 % 99 % 82 /min 130 mm[Hg] 70 mm[Hg] Albina Stephens MD - [facility] 7 18:24:25 Social History None recorded. Functional Status None recorded. Mental Status None recorded. Family History Nothing Reported. Medical History No medical history recorded. Gynecological HistoryNo gynecological history recorded. Obstetrics History GPAL:G 0 P 0 0 0 0 Past Encounters Encounter ID Performer Location Encounter Start Date Encounter Closed Date Diagnosis/Indication Diagnosis SNOMED-CT Code Diagnosis ICD10 Code Diagnosis Note [id number] Bogdan Velasco MD [facility] [address] [place] [address] 11/13/2016 17:57:26 11/17/2016 16:01:43 Dysmenorrhea 962974745 N94.6 Right lowe r quadrant pain 704570150 R10.31 Health Concerns Section Related Observation LastModified by Organization Detai ls LastModified Time None Recorded Concern Status LastModified by Organization Details LastModified Time None Recorded Advance Directives Directive None Recorded Payers None recorded. Notes Date Note Type Note Provider Name and Address Organization Details Recorded Time 11/13/2016 text/html Abdominal PainReported bypatient.Location :[facility] Quality:cramping;a yamilka;sharp Severity:mild; pain level 2/10 Duration:intermitt ent; started:; Late Thursday Onset/Timing:eileen r Modifying Factors:Ibuprofen, rest Associated Symptoms:no fever; no chills; no blood in the urine; no heartburn; no shortness of breath Other:denies possible pregnancyNotes:sta rted menses on Thursday, thought it was just menstrual cramps. Heating pad and ibuprofen no help, then vomited several times. Sister with ovarian cyst. Now period is over but these cramps still persist. No diarrhea, bowel habits pretty normal. No fevers. UTI 2 weeks ago. Took cranberry and fluids and it cleared up. Trying to get . No OBGYN. 8 months trying to get . Albina middleton, MD - [facility] 11/13/2016 19:06:27 OBGyn Episode No OBEpisode recorded.
--- OUTSIDE RECORDS SUMMARY | 2025-02-10 14:09 | XMS_ITS | Clinical Summary ---
Author Organization [facility] Address [address] [place] [address] Care Team Providers Care Tracer Clerk Name Role Phone Unavailable Primary Care Provider Unavailabl e Source Comments [facility],non-owned Affiliates and Associated Physician Practices is amultiple site organization consisting of ambulatory clinics and hospital sitesin [place], [place], [place] and [place]. This disclosure is being madepursuant to the Care Everywhere program and may not contain all information available regarding this patient. Last updated 18.[facility] Allergies No known active allergies Social History Tobacco Use Types Packs/Day Years Used Date Smoking Tobacco: Never Assessed Comments No Sex and Gender Information Value Date Recorded Sex Assigned at Not on file Legal Sex Female 11:28 AM CDT Gender Identity Not on file Sexual Orientation Not on file Plan of Treatment Health Maintenance Due Date Last Done Comments PAP SMEAR 1985 HIV SCREENING 2000 HEPATITIS C SCREENING 05/21/2003 DTAP/TDAP/TD VACCINES (1 - Tdap) 2004 HEPATITIS B VACCINE (1 of 3 - 19+ 3-dose series) 2004 COVID-19 VACCINE ( - 2023-2 5 season) 2024 DEPRESSION SCREENING 09/28/2024 INFLUENZA VACCINE (Season Ended) 2025 ZOSTER VACCINE (1 of 2) 2035 HIB VACCINE Aged Out No longer eligi ble based on patient's age to complete this topic HPV VACCINE Aged Out No longer eligi ble based on patient's age to complete this topic MENINGOCOCCAL (Group B) VACC INE SHARED DECISION-MAKING Aged Out No longer eligibl e based on patient's age to complete this topic MENINGOCOCCAL GROUPS A/C/Y/W VACCINE Aged Out No longer eligible b ased on patient's age to complete this topic PNEUMOCOCCAL VACCINE Aged Out No long er eligible based on patient's age to complete this topic [place] [address] [place] [address] [facility] [id number] MEDICAID - [place] * Guarantor: STEPHY PINEDA Type Relation to Patient Date of Phone Billing Address Personal/Family Sp[place] [address] [place] [address] [place] - [place] ANTH
[2025-02-10 14:31] LABS: Hematocrit 43.2 % (37.0-47.0); Hemoglobin 13.7 g/dL (12.0-15.0); Mean Corpuscular HGB Conc 31.7 g/dl (32-36); Mean Corpuscular Hemoglobin 27.8 pg (26-34); Mean Corpuscular Volume 87.6 fl (80-100); Mean Platelet Volume 10.7 fl (7.4-10.4); Platelet Count Result 222 k/mm3 (150-375); Red Blood Count 4.93 M/mm3 (4.2-5.4); Red Cell Distribution Width 13.2 % (11.5-14.5); White Blood Count 10.3 K/mm3 (4.5-10.0)
[2025-02-10 15:20] LABS: HIV 1/2 Ab P24 Ag Result Negative (Negative)
[2025-02-10 15:22] LABS: Syphilis IgG/IgM Antibody Negative (Negative)
[2025-02-10 15:26] LABS: Hepatitis B Surface Antigen Negative (Negative); Rubella IgG Antibody 15.5 IU/ML
[2025-02-13 15:43] LABS: CMV IgG Antibody >10.00 U/mL
== END 2025-02-10 14:06 | disposition home or self-care (01) ==
LOC: ANHLAB 14:07
PROVIDERS: PCP Family Medicine; Visit Provider Student in an Organized Health Care Education/Training Program
DX: N91.2 Amenorrhea, unspecified (principal)
CPT/HCPCS: 36415; 84702; 85027; 86593; 86644; 86703; 86747; 86762; 86787; 86850; 86900; 86901; 87086; 87340; G0432

== ENCOUNTER 2025-05-31 13:38 | Outpatient (CLI) | payer BC, SELFPAY ==
--- OUTSIDE RECORDS SUMMARY | 2024-03-24 11:30 | XMS_ITS ---
[facility] Address [address] [place], [place] [id number] Care Team Providers Care Contact Center Specialist Name Role Phone Babak Aceves Unavailable Unavailable MYRANDA LARRY Unavailable [phone] REASON FOR VISIT Plantar fasciitis fu Encounters Encounter Location Date Provider Diagnosis [facility] [place] [id number] [facility] [address] [place], [place] [id number] 03/24/2024 MYRANDA LARRY Plan Of Treatment No Information Progress Notes * MOICYNDYKarthikcristineDOB: 5 (40 yo F)Acc No.[id number]:03/24/2024 Patient: Stephy GARCIA Provider: Shirlene Larry DPM :1985 A ge:38 Y S ex:Female Date:03/24/2024 Address[address] [place], [id number] Subjective: * Chief Complaints: * 1 . Plantar fasciitis fu. * Medical History: Objective: * Vitals: Assessment: Plan: * Treatment: * Billing Information: * Visit Code: * Procedure Codes: * Electronic signature of MYRANDA LARRY DPM on 05/31/2025 at 02:52 PM CDT Sign off status: Pending * Provider: Shirlene Larry DPM Date: 03/24/2024 Generated for Sima spencer/Tere/eTransmitting on: 05/31/2025 02:52 PM CDT
--- NOTE | 2025-05-31 13:53 | ECHO_ITS ---
Patient Info Name: Stephy Resendiz Age: 40 years : 1985 Gender: Female Ht: 62 in Wt: 175 lbs BSA: 1.90 m2 HR: 96 bpm BP: 116 / 77 mmHg Technical Quality: Good Exam Date: 05/31/2025 2:16 PM Patient Status: O Admit Date: 05/31/2025 Exam Type: CA echo doppler color flow Complete two-dimensional, color flow and Doppler transthoracic echocardiogram is performed. Central Sterile Supply Technician: Yoselin Morgan Attending Provider: Bobby Velazco Summary 1. Complete two-dimensional, color flow and Doppler transthoracic echocardiogram is performed. 2. Left ventricular chamber dimension is normal. 3. Left ventricular systolic function is normal, estimated at 60-65. 4. The left ventricular diastolic function is normal. 5. E/e' 3 is not elevated. 6. There is trace tricuspid valve regurgitation. 7. No pulmonary hypertension, estimated pulmonary arterial systolic pressure is 24 mmHg. Left Ventricle E/e' 3 is not elevated. Left ventricular chamber dimension is normal. Left ventricular systolic function is normal, estimated at 60-65. The left ventricular diastolic function is normal. Right Ventricle Right ventricular chamber dimension is normal. Right ventricular systolic function is normal and with normal TAPSE 2.1 cm. Left Atria Left atrial chamber dimension is normal. Right Atria Right atrial chamber dimension is normal. Aortic Valve The aortic valve is trileaflet. There is no aortic valve stenosis. There is no aortic valve regurgitation. Pulmonic Valve There is no pulmonic regurgitation. Mitral Valve There is no mitral valve stenosis. There is no mitral valve regurgitation. No mitral valve prolapse. Tricuspid Valve There is trace tricuspid valve regurgitation. No pulmonary hypertension, estimated pulmonary arterial systolic pressure is 24 mmHg. Pericardium/Pleural There is no pericardial effusion. Inferior Vena Cava Normal inferior vena cava with >50% collapse upon inspiration consistent with normal right atrial pressure, 5 mmHg. Aorta The aortic root size at the sinus of Valsalva is normal. Left Ventricular Outflow Tract Name Value Normal LVOT 2D LVOT Diameter 1.8 cm LVOT Doppler LVOT Peak Velocity 160 cm/s LVOT Peak Gradient 10 mmHg LVOT Mean Gradient 6 mmHg LVOT VTI 26 cm LVOT VTI/AV VTI Ratio 0.9 LVOT Stroke Volume 67 ml LVOT CO 18.3 l/min LVOT CI 9.7 l/min/m2 Pulmonic Valve Name Value Normal PV Doppler PV Peak Velocity 121 cm/s PV Peak Gradient 6 mmHg Mitral Valve Name Value Normal MV Diastolic Function MV E Peak Velocity 63 cm/s MV A Peak Velocity 60 cm/s MV E/A 1.0 MV Decel Time (PW) 201 ms MV Annular TDI MV E/e' (Septal) 4.4 MV E/e' (Lateral) 3.3 MV E/e' (Average) 3.9 Tricuspid Valve Name Value Normal TV Regurgitation Doppler TR Peak Velocity 215 cm/s TR Peak Gradient 19 mmHg Estimated PAP/RSVP RA Pressure 5 mmHg <=5 PA Systolic Pressure 24 mmHg <36 RV Systolic Pressure 24 mmHg <36 TV Annular TDI TV Lateral Cheryl s' Velocity 12.3 cm/s >=9.5 Aorta Name Value Normal Ascending Aorta Ao Root Diameter (MM) 2.4 cm Ao Root Diam Index (MM) 1.3 cm/m2 Aortic Valve Name Value Normal AV Doppler AV Peak Velocity 182 cm/s AV Peak Gradient 13 mmHg AV Mean Gradient 8 mmHg AV VTI 29 cm AV Area (Cont Eq VTI) 2.3 cm2 >=3.0 AV Area (Cont Eq Miles) 2.3 cm2 AV DI (Miles) 0.88 AV Regurgitation 2D LVOT Area 2.6 cm2 Ventricles Name Value Normal LV Dimensions 2D/MM IVS Diastolic Thickness (2D) 0.9 cm 0.6-1.0 LVID Diastole (2D) 4.5 cm 3.8-5.2 LVIW Diastolic Thickness (2D) 0.9 cm 0.6-0.9 LVID Systole (2D) 2.8 cm 2.2-3.5 LVOT Diameter 1.8 cm LV Mass (2D Cubed) 137.56 g 67.00-162.00 LV Mass Index (2D Cubed) 73 g/m2 43-95 Relative Wall Thickness (2D) 0.42 <=0.42 LV Fractional Shortening/Ejection Fraction 2D/MM LV Fractional Shortening (2D) 38 % 27-45 LV EF (2D Teichfelipez) 68 % LV Diastolic Volume (4C MOD) 85 ml LV EF (4C MOD) 60 % LV Diastolic Volume (2C MOD) 87 ml LV EF (2C MOD) 50 % LV Diastolic Volume (BP MOD) 86 ml 46-106 LV Diastolic Volume Index (BP MOD) 45 ml/m2 29-61 LV Systolic Volume (BP MOD) 38 ml 14-42 LV Systolic Volume Index (BP MOD) 20 ml/m2 8-24 LV EF (BP MOD) 55 % 54-74 LV Diastolic Length (4C) 7.6 cm LV Systolic Length (4C) 6.1 cm LV Stroke Volume (4C MOD) 51 ml RV Dimensions 2D/MM RVID Diastole (2D) 3.1 cm 2.1-3.5 Atria Name Value Normal LA Dimensions LA Dimension (MM) 3.2 cm 2.7-3.8 LA Volume (4C A-L) 26 ml LA Volume (BP A-L) 30 ml RA Dimensions RA Systolic Major [place] Length (4C) 4.0 cm 2.2-2.8 RA Area (4C) 8.7 cm2 <=18.0 Report Signatures
--- OUTSIDE RECORDS SUMMARY | 2025-05-31 14:52 | XMS_ITS | Clinical Summary ---
Author Organization [facility] Address [address] [place] [address] Care Team Providers Care Cat Wagon Operator Name Role Phone Unavailable Primary Care Provider Unavailabl e Source Comments [facility],non-owned Affiliates and Associated Physician Practices is amultiple site organization consisting of ambulatory clinics and hospital sitesin [place], [place], [place] and [place]. This disclosure is being madepursuant to the Care Everywhere program and may not contain all information available regarding this patient. Last updated 18.[facility] Allergies No known active allergies Encounters Date Type Department Care Team Description 04/25/2025 10:18 AM CDT - 04/25/2025 11:59 PM CDT Hospital Encounter [facility] Women's Health Maternal & Care [address] [place], [place] [id number] Shruthi Tuttle MD Discharge Disposition: Home or Self Care from Last 3 Months Social History Tobacco Use Types Packs/Day Years Used Date Smoking Tobacco: Never Assessed Estimated Date of Delivery Comme nts Yes 09/01/2025 Based on Ultraso und Sex and Gender Information Value Date Recorded Sex Assigned at Not on file Legal Sex Female 11:28 AM CDT Gender Identity Not on file Sexual Orientation Not on file Plan of Treatment Health Maintenance Due Date Last Done Comments LIPID TESTING 1985 MAMMOGRAM 1985 HIV SCREENING 2000 HEPATITIS C SCREENING 05/21/2003 DTAP/TDAP/TD VACCINES (1 - Tdap) 2004 HEPATITIS B VACCINE (1 of 3 - 19+ 3-dose series) 2004 PAP SMEAR 2006 HPV VACCINE (1 - 3-dose SCDM series) 2012 COVID-19 VACCINE (1 - 2023-2 5 season) 2024 DEPRESSION SCREENING 09/28/2024 OB-ONE HOUR GLUCOSE 05/26/2025 INFLUENZA VACCINE (#1) 2025 OB-TDAP CURRENT 06/02/2025 06/12/2023 OB-RHOGAM INJECTION 06/09/2025 Respiratory Syncytial Virus (RSV) Vaccine Pt: or over 60 yrs (1 - Risk 1-dose series) 07/07/2025 ZOSTER VACCINE (1 of 2) 2035 HIB [...] on patient's age to complete this topic Procedures Procedure Name Priority Date/Time Associated Diagnosis Comments SONOGRAM - COMPLETE Routine 04/25/2025 1 0:24 AM CDT Encounter for follow-up ultrasound of anatomy (HCC) resulting from in vitro fertilization, antepartum (HCC) Multigravida of advanced maternal age in second trimester (HCC) from Last 3 Months Results * Sonogram - Complete (04/25/2025 10:24 AM CDT) Linked Results Indication ======== anatomy evaluation Supervision of IVF Transfer Date 12/21 Advanced maternal age (AMA), multigravida Maternal congenital heart defect (CHD) Mitral Valve Prolapse History ====== OB History 3. Para 1 [id number] 1. live 2022. Gest. age 39 w + 0 d. Weight 3,799 g. Sex of child: male. Details: delivery Lab Tests Test Date Result NIPT Low risk, Female Maternal Assessment Physical Exam Height 157 cm, 5 ft 2 in. Initial weight 73 kg, 160 lb. Initial BMI 29.26 kg/m Method ====== Transabdominal and transvaginal ultrasound. View: Good view ========= Felix . Number of fetuses: 1 Dating ====== Date Details Gest. age BETY Stated BETY 21 w + 4 d 09/01/2025 U/S 04/25/2025 based upon AC, BPD, Femur, HC 21 w + 0 d 09/05/2025 Assigned dating based on stated BETY, selected on 04/25/2025 21 w + 4 d 09/01/2025 General Evaluation Cardiac activity present. FHR 153 bpm. Presentation: breech Placenta: Placental site: posterior. Not low-lying Umbilical cord: Cord vessels: 3 vessel cord. Insertion site: normal insertion Amniotic fluid: Amount of AF: normal. MVP 4.8 cm Biometry BPD 48.6 mm 20w 5d 17% Hadlock HC 180.9 mm 20w 4d 6% Hadlock Cerebellum tr 22.7 mm 58% [place] Nuchal fold 4.3 mm AC 167.4 mm 21w 5d 49% Hadlock Femur 34.9 mm 21w 0d 22% Hadlock Humerus 31.4 mm 20w 3d 13% Yusra HC / AC 1.08 -/- Hadlock Weight Calculation: EFW 414 g 30% Hadlock EFW (lb,oz) 0 lb 15 oz EFW by Hadlock ([id number]) Head / Face / Neck Biometry: CM 4.3 mm 18% Nicolaides Growth Overview Exam date GA BPD (mm) HC (mm) AC (mm) FL (mm) HL (mm) EFW (g) 04/25/2025 21w 4d 48.6 17% 180.9 6% 167.4 49% 34.9 22% 31.4 13% 414 30% Anatomy The following structures appear normal: Head / Neck Cranium. Lateral ventricles. Choroid plexus. Midline falx. Cavum septi pellucidi. Cerebellum. Cisterna magna. Thalami. Nuchal fold. Face Lips. Profile. Nose. Nasal bone. Orbits. Heart / Thorax 4-chamber view. RVOT view. LVOT view. 3-vessel view. 4-csbhvr-mdizdvn view. Situs. Aortic arch view. Bicaval view. Ductal arch view. Interventricular septum. Great vessels. Right lung. Left lung. Diaphragm. Abdomen Cord insertion. Stomach. Kidneys. Bladder. Bowel. Genitals. Spine Cervical spine. Thoracic spine. Lumbar spine. Sacral spine. Extremities / Skeleton Arms. Hands. Legs. Feet. sex: female. Maternal Structures Cervix Approach - Transvaginal: Cervical length 4.63 cm Funneling absent Right Ovary Normal Left Ovary surgically absent Impression ========= 1) Felix gestation, 21w4d 2) Overall, biometry is consistent with appropriate growth using the IVF-based BETY of 09/01/25 3) The amniotic fluid volume is within normal limits 4) No abnormalities were detected on detailed anatomic survey 5) Transvaginal ultrasound reveals a minimum cervical length of 4.6 cm Comment ======== ultrasound alone cannot detect all structural, genetic, or functional , placental, or maternal abnormalities Follow-up ======== Follow-up ultrasound in ~4-5 weeks to reevaluate growth Coding ====== Diagnoses O99.412, Q24.9: Diseases of the circulatory system complicating , Congenital malformation of heart, unspecified O09.522: Supervision of elderly multigravida O09.812: Supervision of resulting from assisted reproductive technology Z36.3: Encounter for screening for malformations Procedures 88956: US Preg Uterus Detailed 64641: US Preg Uterus Transvaginal Car [place] PACS Anatomical Region Laterality Modality Other 04/25/2025 10:2 4 AM CDT Bobby Velazco MD [facility] ORDERABLES Edited Result - Final from Last 3 Months Insurance ANTHEM ANTHEM * Guarantor: STEPHY PINEDA Account Type Relation to Patient Date of Phone Billing Address Personal/Family Spouse
--- OUTSIDE RECORDS SUMMARY | 2025-05-31 14:52 | XMS_ITS | Patient Health Record ---
Author Organization [facility] Address [address] [place], [place] [id number] Care Team Providers Care Fiber Drier Operator Name Role Phone Babak Aceves Unavailable Unavailable Allergies No Known Allergies Reason For [...] (Standard) Question Answer Notes Tobacco use: Nonsmoker Plan Of Treatment No Information Insurance Providers Payer Name Payer Address Payer Phone Subscriber Number Group Number Insured Name Patient Relationship to Insured Coverage Start Date Coverage End Date [facility] ([facility] ATTN CLAIMS [address] [place] [address] [id number] Stephy Pineda Self - patient is the insured
--- OUTSIDE RECORDS SUMMARY | 2025-05-31 14:52 | XMS_ITS | Clinical Summary ---
Author Organization [facility] [place] Address [address] [place] [address] Care Team Providers Care Employee Health Nurse Name Role Phone Babak Aceves MD Primary [...] on file Legal Sex Female 7:55 PM PHYSICIAN CHIEF OF PATHOLOGY Gender Identity Not on file Sexual Orientation [...] 12:52 PM CDT Height 157.5 cm (5' 2) 01/25/2024 12:52 PM CDT Body Mass Index 30.07 01/25/2024 12:52 PM CDT Plan of Treatment Health Maintenance Due Date Last Done Comments Cervical Cancer Screening 1985 Hepatitis C Screening 1985 Varicella Vaccines (1 of 2 - 13+ 2-dose series) 1998 Hepatitis B Screening 2003 Regular Well Visit/Exam 18-64 2003 HPV Vaccines (1 - 3-dose SCD M series) 2012 Depression Screening 01/24/2025 01/25/2024, 06/13/2022, 06/13/2022 Influenza Vaccine (#1) 2025 DTaP/Tdap/Td Vaccine (2 - Td or Tdap) 06/12/2033 06/12/2023 Pneumococcal vaccine <65 Aged Out No longer eligible based on patient's age to complete this topic Insurance [facility] A[place] [id number] Care Teams Employee Health Nurse Relationship Specialty Start Date End Date Babak Aceves MD [address] [place] [address] PCP - General Family Medicine 06/13/22
--- OUTSIDE RECORDS SUMMARY | 2025-05-31 14:52 | XMS_ITS | Patient Health Record ---
Author Organization 1 OF [facility] Address [address] [facility] [address] [place] [address] Care Team Providers Care Shirt Finisher Name Role Phone UNKNOWN, UNKNOWN Primary Care Provider Unavailab Kevin Bajwa Unavailable Allergies No Known Allergies Reason For Referral No Information Medications Medication SIG (Take, Route, Fr equency, Duration) Notes Start Date End Date Status Colon Cleanse - as directed Orally Active ZyrTEC Allergy 10 MG 1 tablet Orally Onc e a day; Duration: 30 day(s) Active Social History Tobacco Use: Social History Observation Description Date Details (start date - stop date) Never Smoker NA - NA Tobacco Use/Smoking Question Answer Notes Are you a nonsmoker Problems Problem Type SNOMED Code ICD Code Onset Dates Problem Status W/U Status Risk Notes Problem Pronation deformity of left foot (M21.6X2) Active confirmed Problem Pronation deformity of right foot (M21.6X1) Active confirmed Problem Vitamin D deficiency (62454928) Vitamin D deficiency (E55.9) Active confirmed Plan Of Treatment No Information Insurance Providers Payer Name Payer Address Payer Phone Subscriber Number Group Number Insured Name Patient Relationship to Insured Coverage Start Date Coverage End Date [facility] [address] [place] [address] [id number] Stephy Resendiz Self - patient is the insured Medical (General) History Surgical History Surgery Date(Month/Year)
== END 2025-05-31 13:39 | disposition home or self-care (01) ==
PROVIDERS: PCP Family Medicine; Visit Provider Student in an Organized Health Care Education/Training Program
DX: I34.1 Nonrheumatic mitral (valve) prolapse (principal)
CPT/HCPCS: 93306

== ENCOUNTER 2025-06-02 14:13 | Outpatient (CLI) | payer BC, SELFPAY ==
--- OUTSIDE RECORDS SUMMARY | 2019-12-09 06:28 | XMS_ITS | Continuity of Care Document ---
Author Organization [facility] Address [address] [address] Phone Care Team Providers Care Pond Sawyer Name Role Phone Chanelle Awan MD Unavailable Unavailable Allergies, Adverse Reactions, Alerts Substance Reaction Status Criticality No Known Allergies Active No Inform ation Medications Medication Instructions Dosage Effective Dates (start - stop) Status Comments Singulair 10 mg tablet take 1 tablet by oral route every day in the evening 10 MG - Active Fill after December 27 azelastine 137 mcg (0.1 %) nasal spray aerosol spray 1-2 spray by intranasal route 2 times every day in each nostril - Active Zyrtec 10 mg tablet take 1 tablet by oral route every 2 days 10 MG - Active Procedures Procedure Date Est (Level 3) OFFICE/OUTPATIENT VISIT Ma Perc Test New (Level 3) OFFICE/OUTPATIENT VISIT Ja Advance Directives Directive Yes / No Effective Date File Name No Information Encounters Encounter Description Practice Location Reason(s) For Visit Diagnoses Date Provider Providers Copied on Encounter Est (Level 3) OFFICE/OUTPA TIENT VISIT [facility], [address] [place] [address], [id number], [place] tel:[phone] [facility] [place] (chief complaint) Other allergic rhinitisIdiopathi c urticaria 0 Emperatriz Roca. [address] [facility], [place] [address], [place], [place], [id number] , [place]. tel:[phone] Referring Provider: Ledy Adler, [address], [place], [address]. tel:[phone] New (Level 3) OFFICE/OUTPA TIENT VISIT [facility], [address] [place] [address] [address], [place], [place], [id number], tel:[phone] [facility] [place] complaint) Other allergic rhinitisIdiopathi c urticaria 0 0 Emperatrizkulwant Roca. [address] [facility], [facility] [address], [place], [place], [id number] , [place]. tel: [phone] Referring Provider: Ledy Adler, [address], [place], [address]. tel:[phone] Family History Family Member Type Diagnosis Age At Onset Mother Problem (finding) Digestive problems Payers Payer name Insurance type Covered libertarian ID Authoriza tion(s) No Information Social History Type Description Quantity Date Captured Comments Alcohol Use Details Unknown Caffeine Use Details Unknown Tobacco Use Status No Information Smoking Status No Information Sex Female Vital Signs Date / Time: Height Weight BMI Pulse Rate Blood Pressure Temperature Respiratory Rate Body Surface Area Head Circumference Head Circ. Percentile Wt./Vito. Percentile BMI percentile Pulse Ox Inhaled Ox 11:29 AM 62.00 in 68.039 kg (150.00 lbs) 27.4 4 kg/m eter (2) 82 /min 112/78 mm[Hg] 97.50 F 99 % Chief Complaint And Reason For Visit From encounter dated '12/09/2019 11:28'. hives (chief complaint). Description: LV: 10/07/2019Shkulwant is returned for follow-up of hives. She is taking Zyrtec 1 BID. She tried decreasing it to 1 tab qday, but symptoms recurred mid-day. She is nothaving hives, but is having some itching. 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 She typically takes Zyrtec 1 BID, which helps but does not fully control symptoms. She would like to try an additional medication for environmental allergies. 10/07/0907/07/2020: Percutaneous skintesting for perennial and select seasonal allergens positive for dust mite, cockroach and ragweed with appropriate controls. Reason For Referral Reason For Referral No Information History Of Present Illness Encounter Date Complaint History Of Prese nt Illness hives LV: 10/07/2019Shkulwant is returned for follow-up of hives. She is taking Zyrtec 1 BID. She tried decreasing it to 1 tab qday, but symptoms recurred mid-day. She is not having hives, but is having some itching. 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 She typically takes Zyrtec 1 BID, which helps but does not fully control symptoms. She would like to try an additional medication for environmental allergies. 10/07/0907/07/2020: Percutaneous skin testing for perennial and select seasonal allergens positive for dust mite, cockroach and ragweed with appropriate controls. hives This is her init ial visit. She presents today for itching and hives. She has dermatographism. Symptoms have been present for several years. She typically takes Zyrtec 1 BID, which helps but does not fully control symptoms. When on Zyrtec, she gets a hive every few days. She has had marked itching, skin crawling sensation and mild lip swelling off Zyrtec. No clear food or drug triggers. Her brother has intolerance to multiple foods and IBS. She has constipation. She has had random tic bites over the years. She does eat meat. She takes gummies and a constipation medication. She has headaches with weather changes. She typically has increased rhinitis in the AM and this is also weather dependent. PMH: Constipation, EndometriosisSurgeries: Endometriosis surgeryNKDAFH: Mother - digestive problemsSocial: There is a dog and 2 cats at home. 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 Functional Status Date Functional Assessmen t No Information Instructions Date Instruction Additional Infor karen - Zyrtec or Xyzal on ce to twice daily. May increase to 2 tabs twice daily if needed. - Add azelastine 1-2 sprays/nostril twice daily for rhinitis symptoms. Related to Other allergic rhinitis Assessments Type Assessment Date assessment Other allergic rhinitis 020 assessment Idiopathic urticaria Patient Care Teams Name Effective Dates (start - stop) Status Members No Information
--- OUTSIDE RECORDS SUMMARY | 2024-03-24 11:30 | XMS_ITS ---
[facility] Address [address] [place], [place] [id number] Care Team Providers Care Forensic Materials Engineer Name Role Phone Babak Aceves Unavailable Unavailable MYRANDA LARRY Unavailable [phone] REASON FOR VISIT Plantar fasciitis fu Encounters Encounter Location Date Provider Diagnosis [facility] [place] [id number] [facility] [address] [place], [place] [id number] 03/24/2024 MYRANDA LARRY Plan Of Treatment No Information Progress Notes * MOICYNDYKarthikcristineDOB: 5 (40 yo F)Acc No.[id number]:03/24/2024 Patient: Stephy GARCIA Provider: Shirlene Larry DPM :1985 A ge:38 Y S ex:Female Date:03/24/2024 Address[address] [place], [id number] Subjective: * Chief Complaints: * 1 . Plantar fasciitis fu. * Medical History: Objective: * Vitals: Assessment: Plan: * Treatment: * Billing Information: * Visit Code: * Procedure Codes: * Electronic signature of MYRANDA LARRY DPM on 06/02/2025 at 02:16 PM CDT Sign off status: Pending * Provider: Shirlene Larry DPM Date: 03/24/2024 Generated for Sima spencer/Tere/eTransmitting on: 0 06/02/2025 02:16 PM CDT
--- OUTSIDE RECORDS SUMMARY | 2025-06-02 14:16 | XMS_ITS | Clinical Summary ---
Author Organization [facility] Address [address] [place] [address] Care Team Providers Care Physician Allergist Immunologist Name Role Phone Babak Aceves MD Primary [...] on file Legal Sex Female 7:55 PM DATE PULLER Gender Identity Not on file Sexual Orientation [...] Health Maintenance Due Date Last Done Comments Breast Cancer Screening-Mammogram 1985 Cervical Cancer Screening 1985 Hepatitis C Screening [...] patient's age to complete this topic Insurance [facility] Care Teams Physician Allergist Immunologist Relationship Specialty Start Date End Date Babak Aceves MD [address] [place] [address] PCP - General Family Medicine 06/13/22
--- OUTSIDE RECORDS SUMMARY | 2025-06-02 14:16 | XMS_ITS | Patient Health Record ---
Author Organization 1 OF [facility] Address [address] [facility] [address] [place] [address] Care Team Providers Care Pattern Marking Supervisor Name Role Phone UNKNOWN, UNKNOWN Primary Care [...] (M21.6X1) Active confirmed Problem Vitamin D deficiency (74725928) Vitamin D deficiency (E55.9) Active confirmed Plan Of Treatment No Information Insurance Providers Payer Name Payer Address Payer Phone Subscriber Number Group Number Insured Name Patient Relationship to Insured Coverage Start Date Coverage End Date [facility] [address] [place] [address] [phone] [id number] Stephy Resendiz Self - patient is the insured Medical (General) History Surgical History Surgery Date(Month/Year)
--- OUTSIDE RECORDS SUMMARY | 2025-06-02 14:17 | XMS_ITS | Clinical Summary ---
Author Organization [facility] Address [address] [place] [address] Care Team Providers Care Call Center Operator Name Role Phone Unavailable Primary Care Provider Unavailabl e Source Comments [facility],non-owned Affiliates and Associated Physician Practices is amultiple site organization consisting of ambulatory clinics and hospital sitesin [place], [place], [place] and [place]. This disclosure is being madepursuant to the Care Everywhere program and may not contain all information available regarding this patient. Last updated 18.[facility] Allergies No known active allergies Encounters Date Type Department Care Team Description 04/25/2025 10:18 AM CDT - 04/25/2025 11:59 PM CDT Hospital Encounter [facility] Women's Health Maternal & Care [address] [place], [place] [id number] Shruthi Tuttle MD Discharge Disposition: Home or [...] History ====== OB History 3. Para 1 [id number] 1. live 2022. Gest. age 39 w [...] 0 lb 15 oz EFW by Hadlock ([id number]) Head / Face / Neck Biometry: CM [...] view. RVOT view. LVOT view. 3-vessel view. 0-xzmyia-titqfxj view. Situs. Aortic arch view. Bicaval view. [...] Z36.3: Encounter for screening for malformations Procedures 31524: US Preg Uterus Detailed 87284: US Preg Uterus Transvaginal [employer] PACS Anatomical Region Laterality Modality Other 04/25/2025 10:2 4 AM CDT Bobby Velazco MD [facility] ORDERABLES Edited Result - Final from Last 3 Months Insurance ANTHEM ANTHEM * Guarantor: STEPHY PINEDA Account Type Relation to Patient Date of Phone Billing Address Personal/Family Spouse
--- OUTSIDE RECORDS SUMMARY | 2025-06-02 14:17 | XMS_ITS | Patient Health Record ---
Author Organization [facility] Address [address] [place], [place] [id number] Care Team Providers Care Ammunition Assembly Ii Laborer Name Role Phone Bbaak Aceves Unavailable Unavailable Allergies No Known Allergies Reason For Referral No Information Medications Medication SIG (Take, Route, Frequency, Duration) Notes Start Date End Date Status methylPREDNISolone 4 MG as directed Orally one pack 024 Active Immunizations Vaccine Route Administration Date Status Comme nts Pneumococcal conjugate PCV 13 Unknown 01/20/2024 Refuse d Influenza, high dose seasonal Unknown 01/20/2024 Refuse d Social History Tobacco Use: Social History Observation Description Date Details (start date - stop date) Never Smoker NA - NA Tobacco Control (Standard) Question Answer Notes Tobacco use: Nonsmoker Plan Of Treatment No Information Insurance Providers Payer Name Payer Address Payer Phone Subscriber Number Group Number Insured Name Patient Relationship to Insured Coverage Start Date Coverage End Date [facility] ([facility]) ATTN CLAIMS [address] [place] [address] [id number] Stephy Pineda Self - patient is the insured
[2025-06-02 16:02] LABS: Hematocrit 33.9 % (37.0-47.0); Hemoglobin 10.7 g/dL (12.0-15.0); Mean Corpuscular HGB Conc 31.6 g/dl (32-36); Mean Corpuscular Hemoglobin 27.4 pg (26-34); Mean Corpuscular Volume 86.9 fl (80-100); Platelet Count Result 209 k/mm3 (150-375); Red Blood Count 3.90 M/mm3 (4.2-5.4); White Blood Count 12.7 K/mm3 (4.5-10.0)
[2025-06-02 16:20] LABS: Glucose 1 Hour PP 50gm Dose 118 mg/dL
[2025-06-02 16:58] LABS: Syphilis IgG/IgM Antibody Non-Reactive (Nonreactive)
[2025-06-02 17:23] LABS: HIV 1/2 Ab P24 Ag Result Negative (Negative)
== END 2025-06-02 14:14 | disposition home or self-care (01) ==
LOC: ANHLAB 14:14
PROVIDERS: PCP Family Medicine; Visit Provider Student in an Organized Health Care Education/Training Program
DX: Z34.90 Encounter for supervision of normal pregnancy, unspecified, unspecified trimester (principal); Z3A.00 Weeks of gestation of pregnancy not specified
CPT/HCPCS: 36415; 82947; 85027; 86593; 86703; G0432

== ENCOUNTER 2025-08-15 13:30 | Outpatient (RCR) | payer BC, SELFPAY ==
[2025-07-26 11:42] VITALS: BP 124/75; PULSE 102
[2025-08-02 15:30] VITALS: BP 117/77; PULSE 104
[2025-08-09 12:13] VITALS: BP 118/75; PULSE 98
[2025-08-15 15:28] VITALS: BP 128/80
== END 2025-08-29 10:52 | disposition other institution (70) ==
LOC: ANHOBOP 13:30
PROVIDERS: PCP Family Medicine; Visit Provider Student in an Organized Health Care Education/Training Program
DX: O09.523 Supervision of elderly multigravida, third trimester (principal); Z3A.34 34 weeks gestation of pregnancy
CPT/HCPCS: 59025

== ENCOUNTER 2025-08-26 09:35 | Outpatient (CLI) | payer BC, SELFPAY ==
[2025-08-26 10:27] LABS: Hematocrit 39.2 % (37.0-47.0); Hemoglobin 12.6 g/dL (12.0-15.0); Mean Corpuscular HGB Conc 32.1 g/dl (32-36); Mean Corpuscular Hemoglobin 28.2 pg (26-34); Mean Corpuscular Volume 87.7 fl (80-100); Platelet Count Result 167 k/mm3 (150-375); Red Blood Count 4.47 M/mm3 (4.2-5.4); White Blood Count 10.3 K/mm3 (4.5-10.0)
[2025-08-26 11:29] LABS: Syphilis IgG/IgM Antibody Non-Reactive (Nonreactive)
== END 2025-08-26 09:36 | disposition home or self-care (01) ==
LOC: ANHLAB 09:48
PROVIDERS: PCP Family Medicine; Visit Provider Student in an Organized Health Care Education/Training Program
DX: Z34.93 Encounter for supervision of normal pregnancy, unspecified, third trimester (principal); Z3A.00 Weeks of gestation of pregnancy not specified
CPT/HCPCS: 36415; 85027; 86593; 86850; 86900; 86901

== ENCOUNTER 2025-08-28 09:49 | Inpatient (IN) | payer BC, SELFPAY ==
[2025-08-28] VITALS (39 sets, daily range): BP systolic 103–144; BP diastolic 61–94; PULSE 84–117; RESP 13–22; TEMP 36.3–36.6; O2SAT 93–100; BMI 36.6
--- NOTE | 2025-08-28 08:42 | PM.IMHP2 ---
H&P: HPI History of Present Illness Date/Time: 08/28/25 08:42 Chief Complaint: Intrauterine at term prior section IVF Narrative: 40 yo who presents at 39w for repeat . Review of Systems Cardiovascular: Cardiovascular: Denies chest pain, Denies leg edema, Denies palpitations, Denies dyspnea and Denies dyspnea on exertion Respiratory: Respiratory: Denies cough, Denies dyspnea and Denies dyspnea on exertion Gastrointestinal: Gastrointestinal: Denies abdominal pain, Denies constipation, Denies diarrhea, Denies nausea and Denies vomiting Genitourinary: Genitourinary: Denies hematuria, Denies urinary frequency, Denies dysuria, Denies pelvic pain, Denies urinary incontinence and Denies vaginal discharge Neurologic: Reports system reviewed and no additional complaints, except as documented Psychiatric: Psychiatric: Reports no additional psychiatric complaints Endocrine: Endocrine: Denies palpitations PMFSH Past Medical History Medical History Suppression of menses Endometriosis Surgical History Surgical History History of delivery H/O laparoscopy Family History Family History Mother Diabetes mellitus Pancreatitis Hypertension Grandparent Breast cancer Grandparent Cirrhosis of liver Dementia Social History Social History Smoking status: Never smoker Alcohol intake: current Alcohol use details: 1 glass of wine Substance use: never Substance use type: does not use Lack of Transportation: No Lack of Food: Never True Current Housing: I Have Housing Concerned About Future Housing: No Difficulty Paying Gas/Electric Bills: No Difficulty Paying for Meds: No Currently Unemployed: No Education: High School Diploma/GED Difficulty w/ Childcare or Family Care: No Living arrangements: other Additional living arrangements comments: Occupation/Education: unemployed 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 Gender identity (if verbalized by the patient): Female Sexual Orientation (if Verbalized by the Patient): Straight or Heterosexual Spiritual care concerns: No Meds Home Medications and Allergies Home Medications ?Medication ?Instructions ?Recorded ?Confirmed ?Type prenat.vits,sesar,cfl-dero-zszou 1 tablet PO DAILY 07/29/23 08/23/25 History aspirin 81 mg tablet,delayed 81 mg PO DAILY 01/26/25 08/23/25 History release (Adult Low Dose Aspirin) ferrous sulfate 325 mg (65 mg 325 mg PO DAILY 06/14/25 08/23/25 History iron) tablet omeprazole 20 mg capsule,delayed See Rx Instructions .Route 07/17/25 08/23/25 Rx release .COMPLEX #90 caps sertraline 25 mg tablet 25 mg PO DAILY #90 tabs 08/09/25 08/23/25 Rx clindamycin phosphate 1 % topical 1 applic topical BID #30 mL 08/15/25 08/23/25 Rx solution Allergies Allergy/AdvReac Type Severity Reaction Status Date / Time ultrasound gel Allergy Mild Rash Uncoded 08/23/25 14:17 Exam Const: General: no acute distress Eyes: EOM: EOMs intact bilaterally Neck: Neck: supple Thyroid: thyroid normal Chest: Breast/axilla inspection: normal inspection of the breasts Breast/axilla palpation: normal palpation of the breasts, normal palpation of the axillae and no axillary lymphadenopathy Resp: Effort & Inspection: normal respiratory effort Auscultation: clear to auscultation bilaterally Cardio: Rate: regular rate Rhythm: regular rhythm GI: Inspection: non-distended and other (Gravid) GI Palp: Yes Soft to palpation, No Tenderness to palpation present (GI) and No Guarding due to palpation present (GI) Auscultation: normal bowel sounds : Speculum Exam - Vagina: No vaginal bleeding OB/external & speculum: external exam normal; No vaginal bleeding Skin: General skin exam: normal color and no rashes or lesions noted Neuro: Cognition (Neuro): normal cognition Speech: normal speech Extrem: General: normal to inspection Psych: Mental Status: mental status grossly normal Affect: normal affect Assessment and Plan Assessment and plan (1) : Code(s): Z34.90 - Encounter for supervision of normal , unspecified, unspecified trimester Status: Acute Assessment and Plan: 40 yo admit to L&D routine admission orders labs reviewed Rh+ GBS neg (2) Advanced maternal age (AMA) in : Status: Acute (3) History of section complicating : Code(s): O34.219 - Maternal care for unspecified type scar from previous delivery Status: Acute Assessment and Plan: plan for repeat at 39w (4) resulting from in-vitro fertilization: Code(s): O09.819 - Supervision of resulting from assisted reproductive technology, unspecified trimester Status: Acute Assessment and Plan: -IVF - transfer date of 12/21/2024
--- NOTE | 2025-08-28 09:49 | LDADM ---
This patient, Stephy Resendiz, was admitted to Labor/Delivery/Recovery 119 on 08/28/25 at 09:49. Plans for labor, pain management and were discussed with patient. Patient/family oriented to hospital policies and general routines including ID bracelet, bed and alarms, visiting hours, pain management, procedures, bathroom and other care routines, personal items, smoking policy, room service/diet and guest tray routines, infant security routines, and visiting hours. Patient/Family are encouraged to report perceived risks to care and to ask questions if they do not understand what they are told or what they should do. See OBIX for further documentation.
[2025-08-28] MEDS: LACTATED RINGERS 1,000 ML 125 ML IV CONT ×2 (10:40→11:28)
[2025-08-28] MEDS: ACETAMINOPHEN 500 MG TABLET 1000 MG PO ×3 (10:41→23:15)
--- OUTSIDE RECORDS SUMMARY | 2025-08-28 10:55 | XMS_ITS | Clinical Summary ---
Author Organization 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 Operator Name Role Phone Babak Aceves MD [...] mg Dosepack as directed Orally 4 Active , 1 mg-20 mcg (21)/75 mg (7) per tablet Take 1 tablet by mouth daily Active sertraline (ZOLOFT) 25 mg tablet Take 1 tablet (25 mg total) by mouth daily Active Active Problems No known active problems Encounters Date Type Department Care Team Description 06/12/2025 Telephone [facility] [address] [phone] Babak Aceves MD 06/09/2025 Telephone [facility] [address] [phone] Babak Aceves MD from Last 3 Months Immunizations Immunization Administration Dates Next Due Influenza, [...] on file Legal Sex Female 7:55 PM [employer] 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
--- OUTSIDE RECORDS SUMMARY | 2025-08-28 10:56 | XMS_ITS | Clinical Summary ---
Author Organization [facility] Address [address] [place] [address] Care Team Providers Care Legal Examiner Name Role Phone Unavailable Primary Care Provider Unavailabl e Source Comments [facility],non-owned Affiliates and Associated Physician Practices is amultiple site organization consisting of ambulatory clinics and hospital sitesin [place], [place] and [place]. This disclosure is being madepursuant to the Care Everywhere program and may not contain all information available regarding this patient. Last updated 18.[facility] Allergies No known active allergies Social History [...] of 3 - 19+ 3-dose series) 2004 Cervical Cancer Screening 2006 PAP SMEAR 2006 HPV VACCINE (1 - 3-dose SCDM series) 2012 PAP with HPV 2015 DEPRESSION SCREENING 09/28/2024 OB-ONE HOUR GLUCOSE 05/26/2025 COVID-19 VACCINE (1 - 2024-2 6 season) 2025 INFLUENZA VACCINE (#1) 2025 OB-TDAP CURRENT 06/02/2025 06/12/2023 OB-RHOGAM INJECTION 06/09/2025 OB-GROUP B STREP SCREEN 07/28/2025 ZOSTER VACCINE (1 of 2) 2035 HIB [...] on patient's age to complete this topic Respiratory Syncytial Virus (RSV) Vaccine Pt: or over 60 yrs (No Doses Required) Completed Insurance [employer] * Guarantor: STEPHY PINEDA Account Type Relation to Patient Date of Phone Billing Address Personal/Family Spouse
--- NOTE | 2025-08-28 11:55 | WPDHPUPDATE1 ---
History and Physical Update Update Date/Time: 08/28/25 11:55 History and Physical has been reviewed, including an updated exam of the patient. There are NO changes in the patient's condition. Risks, benefits, and alternatives have been discussed and questions answered. Patient agrees to proceed with procedure.
[2025-08-28] MEDS: ONDANSETRON INJ 4 MG/2 ML VIAL IV PUSH ×2 (12:18→18:30)
[2025-08-28] MEDS: ceFAZolin 2 GM in SODIUM CHLORIDE 0.9% IV 50 ML 100 ML IVPB (12:18)
[2025-08-28] MEDS: FAMOTIDINE 20 MG/2 ML VIAL IV PUSH (12:18)
--- NOTE | 2025-08-28 13:22 | W.PM.OBCSD ---
OB - Delivery Note Procedure Delivery date: 08/28/25 Pre-op diagnosis: Previous Delivery Post-op Diagnosis: Same Induction method: None Delivery monitor: External FHT Prior to decision for section, ACOG/SMFM labor guidelines were considered and discussed with the patient and staff. Decision made to proceed with the section.: Yes Procedure Performed: Repeat Secondary branch: low cervical, transverse Surgeon: Bobby Velazco MD Anesthesia type: Spinal Description of Procedure/Findings: The patient was taken to the operating room. A combined spinal epidural anesthesic was administered and found to be adequate at a t-10 level. The patient was placed in a supine position with a slight left lateral tilt. A bill catheter was placed with return of clear urine. A Bovie grounding pad was placed. Surgical prep was performed and surgical drapes were placed. A surgical time out was performed. A Pfannenstiel skin incision was then made with the scalpel and carried through to the underlying layer of fascia. The fascia was then incised in the midline and the incision was extended laterally with the Parra scissors. The superior aspect of the fascia was then grasped with the Chhaya clamps, elevated, and the underlying rectus muscles dissected off bluntly and sharply. Attention was then turned to the inferior aspect of this incision which, in a similar fashion, was grasped, tented up with the Chhaya clamps, and the rectus muscles dissected off both bluntly and sharply. The rectus muscles were then in the midline. The peritoneum was identified and entered bluntly. The peritoneal incision was then extended superiorly and inferiorly with good visualization of the bladder. The vesico-uterine serosa was identified and dissected to create a bladder flap. The bladder blade was reinserted. The uterus was inspected for rotation. A low-transverse uterine incision was made sharply with the scalpel and entry was made into the uterine cavity. An amniotomy was made and copious amounts of clear fluid were noted on return. The uterine incision was extended laterally bluntly. The bladder blade was removed and the fetus was delivered atraumatically. The nose and mouth were suctioned with a bulb syringe. The umbilical cord was clamped twice and cut. The infant was handed off to the waiting staff. At the time of the delivery, the had good color, tone and grimace. The cried with minimal stimulation. A second segment of umbilical cord was clamped and cut for cord blood gasses. Cord blood was collected for determination of the blood type and for direct Schmidt. The placenta was delivered spontaneously without difficulty. The placenta appeared grossly normal and complete. The uterus was exteriorized and cleared of all clots and debris. The uterine incision was repaired using 0-monocryl suture in a running fashion. The uterine closure was inspected for hemostasis. The posterior aspect of the uterus and the broad ligaments were inspected and the posterior cul-de-sac cleared of fluid and blood clots. The uterine closure was again inspected and found to be hemostatic. The uterus was returned to the abdominal cavity. The pericolic gutters were inspected and were cleared of all blood clots and debris. The uterine closure was then re inspected to ensure hemostasis as were all subfascial tissues. The peritoneum was closed using 3-0 vicryl in a running fashion. The fascia was reapproximated with 0-vicryl in a running fashion. The subcutaneous tissue was irrigated and hemostasis achieved with electrocautery. It was reapproximated with 3-0 vicryl in a running fashion. The skin was closed with 4-0 vicryl in a subcuticular fashion. A sterile dressing was applied to the wound. The patient tolerated the procedure well. Sponge, lap and needle counts were correct times three. The patient was taken to recovery in stable condition and without anticipated complications. Estimated Blood Loss: 310 Drains: No Packing: No Complications: No immediate complications Condition: Stable Disposition: Floor [place] Baby Date of : 08/28/25 Gestational Age by Date: 39 Infant gender: Female Weight (pounds): 8 Weight (ounces): 9 presentation: vertex Placenta delivery description: Manual Removal Cord Vessel Description: 3 Vessels
[2025-08-28] MEDS: OXYTOCIN 30 UNITS/NS 500 ML 30 UNITS/500 ML BAG 125 UNITS IV CONT (15:22)
--- NOTE | 2025-08-28 15:31 | PC.NURSE ---
While cleaning pt after c/s, a large amount of clots were expressed. Dr. Velazco was notified by phone and orders fo 800mcg cytotec [place] were received. Bleeding with large clots continued, fundus was firm. Dr. Velazco gave orders for 0.2mg Methergine IM. Marilyn Diane RN was called to the OR. She performed bimanual massage and removed several more clots. Previous QBL was 310cc. After weighing towels and chux pads, QBL was revised to 806cc. Fundus remained firm, but bleeding continued. Dr. Velazco was called at 1336 and asked to return to OR. Dr. Velazco was in the OR at 1341. Orders were given for 1gm Txa IV. Txa was given by Marilyn Weber CRNA. After Txa was given, bleeding slowed considerably, fundus remained firm, and pt was moved to recovery room. Chux and towels were received and QBL was revised to 844cc.
[2025-08-28] MEDS: KETOROLAC 15 MG/ML VIAL (*BKC) IV PUSH ×2 (17:15→23:15)
[2025-08-28] MEDS: DOCUSATE SODIUM 100 MG CAPSULE PO (17:16)
[2025-08-28] MEDS: SIMETHICONE 80 MG TAB.CHEW PO (17:16)
[2025-08-28] MEDS: DEXTROSE 5%/0.45% SOD CHL 1,000 ML 125 ML IV CONT (20:29)
[2025-08-28] MEDS: diphenhydrAMINE HCl CAP 25 MG CAPSULE 50 MG PO (20:35)
[2025-08-28] MEDS: ZOLPIDEM TARTRATE (*CRX) 5 MG TABLET PO (20:35)
[2025-08-28] MEDS: HYDROCORTISONE 1% 30 GM CREAM 1 APPLIC TOPICAL (21:29)
[2025-08-29 03:45] VITALS: BP 110/78; PULSE 80; RESP 18; TEMP 36.3; O2SAT 98
[2025-08-29] MEDS: ACETAMINOPHEN 500 MG TABLET 1000 MG PO ×4 (05:15→23:15)
[2025-08-29] MEDS: KETOROLAC 15 MG/ML VIAL (*BKC) IV PUSH (05:15)
[2025-08-29 05:18] LABS: Hematocrit 33.5 % (37.0-47.0); Hemoglobin 11.0 g/dL (12.0-15.0); Immature Granulocyte Percent A 0.5 % (0-0.5); Lymphocytes Absolute Auto 2.06 K/mm3 (0.9-3.2); Mean Corpuscular HGB Conc 32.8 g/dl (32-36); Mean Corpuscular Hemoglobin 29.0 pg (26-34); Mean Corpuscular Volume 88.4 fl (80-100); Nucleated Red Blood Cells Absolute Auto 0.000 K/mm3 (0.0-0.012); Nucleated Red Blood Cells Perc 0.0 % (0.0-0.2); Platelet Count Result 157 k/mm3 (150-375); Red Blood Count 3.79 M/mm3 (4.2-5.4); White Blood Count 15.4 K/mm3 (4.5-10.0)
--- NOTE | 2025-08-29 07:14 | WPDANLDPN2 ---
Anes-Prog Note L&D Date/Time: 08/29/25 07:14 Comfortable throughout: section Neuraxial method: epidural Epidural/Spinal procedure site: clean & non-tender Neuro status: Neuro function grossly intact. Cardiovascular status: normal Respiratory status: normal Airway patency: baseline Mental status: baseline Post-Op hydration status: normal Vital Signs: Last Vital Signs Temp 36.3 C L 08/29/25 03:45 Pulse 80 08/29/25 03:45 Resp 18 08/29/25 03:45 BP 110/78 08/29/25 03:45 Pulse Ox 98 08/29/25 03:45 O2 Del Method Room Air 08/28/25 18:50 Pain score (VAS): 2 I/O: Intake & Output 08/28/25 08/28/25 08/29/25 15:59 23:59 07:59 Intake Total 1000 908.3 Output Total 844 400 400 Balance 156 -400 508.3 Post-procedural complaints: none Patient feedback: Patient satisfied with anesthetic care.
[2025-08-29 07:30] VITALS: BP 107/71; PULSE 85; RESP 16; TEMP 36.6; O2SAT 98
--- NOTE | 2025-08-29 07:55 | P.PNOB_ITS ---
OB - PN: Subj Subjective Date/time seen: 08/29/25 07:55 Patient comments: no complaints, pain well controlled, tolerating diet and flatus present OB - PN: Obj Data Labs 08/29/25 03:27 Labs: Laboratory Results - last 24 hr 08/29/25 03:27 WBC 15.4 H RBC 3.79 L Hgb 11.0 L Hct 33.5 L MCV 88.4 MCH 29.0 MCHC 32.8 RDW 15.0 H Plt Count 157 MPV 12.1 H Immature Gran % (Auto) 0.5 Neut % (Auto) 80.2 H Lymph % (Auto) 13.4 L [place] % (Auto) 5.6 Eos % (Auto) 0.1 Baso % (Auto) 0.2 Lymph # (Auto) 2.06 [place] # (Auto) 0.9 H Eos # (Auto) 0.0 Baso # (Auto) 0.0 Abs Immat Gran (auto) 0.08 H Absolute Neuts (auto) 12.4 H Absolute Nucleated RBC 0.000 Nucleated RBC % 0.0 OB - PN A/P Plan day: 1 Plan: routine care Comments: patient doing well H/H stable afebrile, VSS incision C/D/I bill removed, voiding spontaneously continue routine post op care Time Spent With Patient Time: Total time spent is greater than 50% in coordination of care (as documented) at patient's floor/unit and/or counseling patient: Time with patient: less than 15 minutes Review of Systems 2 Constitutional: Constitutional: Reports no additional constitutional complaints Cardiovascular: Cardiovascular: Reports no additional cardiovascular complaints Respiratory: Respiratory: Reports no additional respiratory complaints Gastrointestinal: Gastrointestinal: Reports no additional gastrointestinal complaints Genitourinary: Genitourinary: Reports no additional female genitourinary complaints Exam 2 Const: General: comfortable and no acute distress Resp: Effort & Inspection: normal respiratory effort Auscultation: clear to auscultation bilaterally Cardio: Rate: regular rate GI: GI Palp: Yes Soft to palpation, Yes Tenderness to palpation present (GI) (around incision ) and No Guarding due to palpation present (GI) A uscultation: normal bowel sounds Other: incision C/D/I, covered with Dermabond Psych: Appearance: grossly normal Mental Status: mental status grossly normal Affect: normal affect
[2025-08-29] MEDS: SIMETHICONE 80 MG TAB.CHEW PO ×3 (09:45→17:17)
[2025-08-29] MEDS: DOCUSATE SODIUM 100 MG CAPSULE PO ×2 (09:45→17:17)
[2025-08-29] MEDS: IBUPROFEN 600 MG TABLET PO ×3 (11:32→23:15)
[2025-08-29 12:01] VITALS: BP 114/72; PULSE 92; RESP 16; TEMP 36.8; O2SAT 99
[2025-08-29 20:30] VITALS: BP 124/77; PULSE 86; RESP 16; TEMP 36.4; O2SAT 97
[2025-08-30] MEDS: ACETAMINOPHEN 500 MG TABLET 1000 MG PO ×3 (05:25→17:13)
[2025-08-30] MEDS: IBUPROFEN 600 MG TABLET PO ×3 (05:25→17:12)
[2025-08-30 07:08] VITALS: BP 113/77; PULSE 64; RESP 16; TEMP 36.7; O2SAT 97
--- NOTE | 2025-08-30 07:51 | P.PNOB_ITS ---
OB - PN: Subj Subjective Date/time seen: 08/30/25 07:51 Interval history: doing well overall. Patient does report bothersome swelling. She states the swelling is causing paresthesias in her hands and feet. Patient comments: no complaints, pain well controlled, tolerating diet and flatus present OB - PN: Obj Data Labs 08/29/25 03:27 OB - PN A/P Plan day: 2 Plan: routine care Comments: patient doing well afebrile, VSS incision C/D/I Patient reports bothersome edema, will administer p.o. Lasix continue routine post op care Time Spent With Patient Time: Total time spent is greater than 50% in coordination of care (as documented) at patient's floor/unit and/or counseling patient: Time with patient: less than 15 minutes Review of Systems 2 Constitutional: Constitutional: Reports no additional constitutional complaints Cardiovascular: Cardiovascular: Reports no additional cardiovascular complaints Respiratory: Respiratory: Reports no additional respiratory complaints Gastrointestinal: Gastrointestinal: Reports no additional gastrointestinal complaints Genitourinary: Genitourinary: Reports no additional female genitourinary complaints Exam 2 Const: General: comfortable and no acute distress Resp: Effort & Inspection: normal respiratory effort Auscultation: clear to auscultation bilaterally Cardio: Rate: regular rate GI: GI Palp: Yes Soft to palpation, Yes Tenderness to palpation present (GI) (around incision ) and No Guarding due to palpation present (GI) A uscultation: normal bowel sounds Other: incision C/D/I, covered with Dermabond Psych: Appearance: grossly normal Mental Status: mental status grossly normal Affect: normal affect
[2025-08-30] MEDS: DOCUSATE SODIUM 100 MG CAPSULE PO (08:07)
[2025-08-30] MEDS: SIMETHICONE 80 MG TAB.CHEW PO ×2 (08:07→11:27)
[2025-08-30] MEDS: FUROSEMIDE 20 MG TABLET PO (08:07)
[2025-08-30] MEDS: HYDROCORTISONE 1% 30 GM CREAM 1 APPLIC TOPICAL ×2 (08:08→21:58)
--- NOTE | 2025-08-30 09:56 | PC.NURSE ---
On 08/30/25, the student, Lor Curran, provided care and completed [facility] documentation on this patient. I have reviewed the student's documentation and agree with the findings.
--- NOTE | 2025-08-30 16:14 | PM.OBDSVD ---
DS: Admitting Diagnosis Discharge Date 08/31/26 Admitting Diagnosis intrauterine at term IVF history of DS: Discharge Diagnosis Discharge Diagnosis (1) delivery delivered: Code(s): O82 - Encounter for delivery without indication Status: Acute OB - DS: Summary OB Procedures : None OB Procedures Intrapartum: OB Procedures: : None Peripartum Data Infant Delivery Method: Section Procedures: Procedures Operation Date: 08/28/25 12:00 Actual Procedure Side Surgeon p Repeat Section Bobby Velazco MD complications: none Status at Discharge Functional status at discharge: independent ambulation Overall status at discharge: patient is progressing back to baseline Time Spent with Patient Time attestation: Total time spent providing and/or coordinating discharge services: Time spent: Less than 30 minutes Exam Const: General: comfortable and no acute distress Resp: Effort & Inspection: normal respiratory effort Auscultation: clear to auscultation bilaterally Cardio: Rate: regular rate GI: Inspection: non-distended GI Palp: Yes Soft to palpation, No Firmness to palpation present (GI), Yes Tenderness to palpation present (GI) (mild tenderness over incision ) and No Guarding due to palpation present (GI) Auscultation: normal bowel sounds Psych: Appearance: grossly normal Mental Status: mental status grossly normal Discharge Plan Discharge Discharging Clinician: Bobby Velazco Patient Disposition: Home Activity: may shower, as tolerated and pelvic rest Diet: regular Patient Instructions: Antibiotic Form, (DC) Patient Language: Cymraes Stand Alone Forms: General Discharge Information Follow-up/Referrals: Bobby Velazco MD [Physician, DIRECTOR METABOLISM] - 4 Weeks Discharge Medications: New oxycodone-acetaminophen 5-325 mg tablet 1 tablet PO Q6H PRN (Reason: pain) Qty: 28 0RF ibuprofen 600 mg tablet 600 mg PO Q6H PRN (Reason: pain) Qty: 30 0RF Continued ferrous sulfate 325 mg (65 mg iron) tablet 325 mg PO DAILY sertraline 25 mg tablet 25 mg PO DAILY Qty: 90 0RF prenat.vits,sesar,nmn-vssw-ynvni Tablet 1 tablet PO DAILY cetirizine [24Hour Allergy] 10 mg tablet 10 mg PO QHS omeprazole 20 mg capsule,delayed release(DR/EC) See Rx Instructions .ROUTE .COMPLEX Qty: 90 0RF Dose Instruction: TAKE 1 CAPSULE BY MOUTH DAILY Rx Instructions: TAKE 1 CAPSULE BY MOUTH DAILY Discontinued aspirin [Adult Low Dose Aspirin] 81 mg tablet,delayed release (DR/EC) 81 mg PO DAILY Date of admission: 08/28/25 09:49 Primary Care Provider: Ketan,Babak Chase Admitting Provider: Bobby Velazco Attending physician on admission: Bobby Velazco Condition: Stable
[2025-08-30 19:10] VITALS: BP 129/75; PULSE 79; RESP 18; TEMP 36.8; O2SAT 99
[2025-08-31] MEDS: IBUPROFEN 600 MG TABLET PO ×2 (00:39→06:44)
[2025-08-31] MEDS: ACETAMINOPHEN 500 MG TABLET 1000 MG PO ×2 (00:39→06:44)
[2025-08-31 07:05] VITALS: BP 129/88; PULSE 74; RESP 16; TEMP 36.6; O2SAT 99
[2025-08-31] MEDS: HYDROCORTISONE 1% 30 GM CREAM 1 APPLIC TOPICAL (08:48)
[2025-09-01 14:55] VITALS: BP 133/83; PULSE 83; RESP 18; TEMP 36.8; O2SAT 100
== END 2025-08-31 11:00 | disposition home or self-care (01) | DRG 788 ==
LOC: ANHLDR 16:36 → ANHOB2 16:37
PROVIDERS: Admitting Provider Student in an Organized Health Care Education/Training Program; PCP Family Medicine; Visit Provider Student in an Organized Health Care Education/Training Program
PROC: 10D00Z1 Extraction of Products of Conception, Low, Open Approach (ICD-10-PCS; CPT 59514; principal; 2025-08-28 12:00)
DX: O34.219 Maternal care for unspecified type scar from previous cesarean delivery (principal); Z67.91 Unspecified blood type, Rh negative; Z3A.39 39 weeks gestation of pregnancy; Z37.0 Single live birth
CPT/HCPCS: 36415; 85025; J0690; A9270; J1100; J1200; J1885; J2210; J2274; J2371; J2405; J2590; J3290; J7120